=== PATIENT | female | born 1940 | race Caucasian/White ===

== ENCOUNTER 2016-07-25 06:37 | Emergency (ER) | payer OTHER ==
[~2016-07-25] VITALS: Ht 165.1 cm; Wt 95.3 kg
[~2016-07-25 06:37] MED LIST: ALPRAZOLAM0.25 M1 PO; ALPRAZOLAM0.5 MG PO; APAP/CODEINE 301 TAB PO; BACTRIM DS 8001 TAB PO; BUFFERIN LOW DO81 MG PO; CALCIUM + D 6001 TAB PO; CALCIUM600 M2 PO; CLEOCIN HCL300 MG PO; COLACE100 MG PO; COUGH & COLD 41 TAB PO; COUMADIN 5 MG TA5 MG PO; COUMADIN5 M2 PO; DICLOFENAC SODI75 M3 PO; DOCUSATE SODIU100 M3 PO; IRON SUPPLEMEN325 MG PO; KEFLEX500 MG PO; LEVOTHYROXINE0.1 M1 PO; LEVOTHYROXINE0.1 MG PO; LEVOTHYROXINE100 MC1 PO; LISINOPRIL AND1 TA1 PO; LOTRIMIN CR1 %/30 GM TOP; MIRALAX119 GM PO; MULTI-DAY VITA1 EACH PO; NYSTATIN60 GM TOP; PERCOCET 5-3251 EACH PO; SENNA PLUS TAB1 EACH PO; SIMVASTATIN5 M2 PO; SIMVASTATIN5 MG PO; TAMIFLU30 MG PO; TRAMADOL50 MG PO; TYLENOL500 MG PO; VERAPAMIL ER P300 MG PO; VERAPAMIL HYDR300 MG PO; VITAMIN B11000 MCG/M PO; VITAMIN B121000 MC2 PO; VITAMIN D250000 UNIT PO
--- NOTE | 2016-07-25 06:59 | ED GI/GU/ABDOMINAL COMPLAINT ---
See Addendum History of Present Illness General Chief Complaint: Nausea, Vomiting, Diarrhea Stated Complaint: BIBA +NVD Source: patient Exam Limitations: no limitations Vital Signs & Intake/Output Vital Signs & Intake/Output Vital Signs Date Time Temp Pulse Resp B/P B/P Pulse O2 O2 Flow FiO2 Mean Ox Delivery Rate 07/25 0921 96.9 73 15 166/78 96 Room Air Room Air 07/25 0649 96.5 76 20 168/79 95 Room Air Allergies Coded Allergies: Penicillins (Mild, RASH 05/15/15) poison felicitas extract (UNKNOWN 09/01/15) Reconcile Medications Alprazolam 0.25 MG TABLET 1-2 TAB PO PRN ANXIETY (Reported) Calcium Carbonate (Calcium) 600 MG TABLET 1 TAB PO BID SUPPLEMENT (Reported) Cyanocobalamin (Vitamin B12) 1,000 MCG TAB 1 TAB PO DAILY SUPPLEMENT ( Reported) Docusate Sodium 100 MG CAPSULE 1 TAB PO BID CONSTIPATION Ergocalciferol (Vitamin D2) (Vitamin D2) 50,000 UNIT CAPSULE 1 CAP PO Q2W SUPPLEMENT (Reported) Ferrous Sulfate (Iron Supplement) 325 MG TABLET 1 TAB PO DAILY SUPPLEMENT ( Reported) Levothyroxine Sodium 100 MCG TABLET 1 TAB PO DAILY SUPPLEMENT (Reported) LISINOPRIL/HYDROCHLOROTHIAZIDE (Lisinopril-Hctz 20-12.5 MG Tab) 1 TAB TAB 1 TAB PO DAILY BP (Reported) Multivitamin (Multi-Day Vitamins) 1 EACH TABLET 1 TAB PO DAILY SUPPLEMENT ( Reported) Nystatin 60 GM POWDER 1 MIRIAM TOP TID PRN YEAST apply to affected area(s) Oxycodone HCl/Acetaminophen (Percocet 5-325 MG Tablet) 1 EACH TABLET 1-2 TAB PO Q4P PRN PAIN SCALE 1-4 Polyethylene Glycol 3350 (Miralax) 119 GM POWDER 1 PAC PO DAILY NEEDED PRN NO BM IN TWO DAYS Sennosides/Docusate Sodium (Senna Plus Tablet) 1 EACH TABLET 2 TAB PO QPMP PRN NO BM IN TWO DAYS Simvastatin (Zocor) 5 MG TAB 1 TAB PO DAILY CHOLESTEROL (Reported) Verapamil HCl (Verapamil ER Pm) 300 MG CAP24H.PCT 1 CAP PO BID BP (Reported) Warfarin Sodium (Coumadin) 5 MG TABLET 1 TAB PO DAILY BLOOD THINNER TITRATE DOSE TO MAINTAIN INR 2-3 FOR DVT PROPHYLAXIS Triage Note: PT BIBA, PER PT SHE WOKE UP AT 0500, STARTED FEELING LIKE THE ROOM WAS SPINNING, BECAME NAUSEOUS AND WAS DRY HEAVING. PT DENIES ANY ABD PAIN OR DIARRHEA AT THIS TIME. PT DENIES ANY CHEST PAIN OR SOB AT THIS TIME. AT BEDSIDE FOR EVALUATION. Triage Nurses Notes Reviewed? yes ? n Is pt currently ? No Onset: Gradual Duration: hour(s): Timing: recent history Location: nausea, no abdominal pain Radiation: no radiation Activities at Onset: none Prior Abdominal Problems: similar symptoms Modifying Factors: Worsens With: movement. Associated Symptoms: vertigo HPI: 76-year-old woman with a history of vertigo intermittently presents with an episode where she feels that the world is spinning around her, she feels nauseous. She has no diarrhea, chest pain, abdominal pain. Her dizziness began at 5 AM, is worse with movement of her head. She has no focal weakness or dysarthria. She also has significant nausea without vomiting (CICI LENNON,ISSAC Humphries) Past History Travel History Traveled to [place] past 21 day No Medical History Any Pertinent Medical History? 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 No (ISSAC LOO MD) Review of Systems Review of Systems Constitutional: Reports: no symptoms. EENTM: Reports: no symptoms. Respiratory: Reports: no symptoms. Cardiovascular: Reports: no symptoms. GI: Reports: no symptoms. Genitourinary: Reports: no symptoms. Musculoskeletal: Reports: no symptoms. Skin: Reports: no symptoms. Neurological/Psychological: Reports: no symptoms. Hematologic/Endocrine: Reports: no symptoms. Immunologic/Allergic: Reports: no symptoms. All Other Systems: Reviewed and Negative (ISSAC LOO MD) Physical Exam Physical Exam General Appearance: well developed/nourished, mild distress Head: atraumatic, normal appearance Eyes: Bilateral: normal appearance. Ears, Nose, Throat, Mouth: hearing grossly normal Neck: normal inspection, supple, full range of motion, normal alignment Respiratory: normal breath sounds, chest non-tender, no respiratory distress, quiet respiration Gastrointestinal: normal bowel sounds, soft, non-tender, no organomegaly Back: normal inspection, normal range of motion Extremities: normal range of motion Neurologic/Psych: no motor/sensory deficits, awake, alert Skin: intact, normal color, warm/dry Core Measures ACS in differential dx? No Severe Sepsis Present: No Septic Shock Present: No (CICI LENNON,ISSAC Humphries) Progress Differential Diagnosis: UTI/pyelo, vertigo vs dehydration vs other. Plan of Care: Orders Procedure Date/time Status CT HEAD WO IV CONTRAST 07/[address] ABD & PELVIS ANGIOGRAM 07/[address] HEAD WO IV CONTRAST 07/[address] ABD & PELVIS W/O IV CONTRAS 07/25 1023 Active TROPONIN LEVEL 07/25 0659 Complete LIPASE 07/25 0659 Complete HEPATIC FUNCTION PANEL 07/25 0659 Complete CBC WITHOUT DIFFERENTIAL 07/25 0659 Complete BASIC METABOLIC PANEL 07/25 0659 Complete AMYLASE 07/25 0659 Complete EKG 07/25 0659 Active Laboratory Tests 07/25/16 0704: Anion Gap 9, Estimated GFR > 60, BUN/Creatinine Ratio 31.7 H, Glucose 103 H, Calcium 8.8, Total Bilirubin 1.4 H, Direct Bilirubin 0.2, AST 25, ALT 37, Alkaline Phosphatase 66, Troponin I < 0.01, Total Protein 6.3, Albumin 3.8, Amylase 104, Lipase 467 H, CBC w Diff NO MAN DIFF REQ, RBC 4.87, MCV 64.6 L, MCH 20.6 L, RDW 15.4 H, MPV 9.3, Gran % 68.1, Lymphocytes % 17.6 L, Monocytes % 8.2, Eosinophils % 5.4 H, Basophils % 0.7, Absolute Granulocytes 4.4, Absolute Lymphocytes 1.1 L, Absolute Monocytes 0.5, Absolute Eosinophils 0.3, Absolute Basophils 0, PUBS MCHC 32.0 L Initial ED EKG: pending Hand-Off Endorsed To: JESSICA ALTAMIRANO DO Endorsed Time: 0700 Pending: labs (CICI LENNON,ISSAC Humphries) Departure Departure Disposition: HOME OR SELF CARE Condition: Stable Clinical Impression Primary Impression: Vertigo Referrals: GENESIS LENNON,MARY Carr (PCP/Family) Departure Forms: Customer Survey General Discharge Information (CICI LENNON,ISSAC Humphries) Departure Comments 07/25/16 10:30 AM The patient was signed out to me by Dr. Loo. She had severe vertigo earlier today. It is improved with meclizine she did have an elevated lipase. She is pending imaging studies assuming these are normal discharge. (JESSICA ALTAMIRANO DO)
[2016-07-25 07:22] LABS: ABSOLUTE BASOPHIL COUNT 0 /CUMM (0.0-0.2); ABSOLUTE EOSINOPHIL COUNT 0.3 /CUMM (0.0-0.7); ABSOLUTE GRANULOCYTE CT 4.4 /CUMM (1.4-6.5); ABSOLUTE LYMPH COUNT 1.1 /CUMM (1.2-3.4); ABSOLUTE MONOCYTE COUNT 0.5 /CUMM (0.10-0.60); BASOPHIL % 0.7 % (0.0-2.0); EOSINOPHIL % 5.4 % (0-5); GRANULOCYTE % 68.1 % (42.2-75.2); HEMATOCRIT 31.5 % (37-47); MEAN CORPUSCULAR HGB 20.6 PG (27.0-31.0); MEAN PLATELET VOLUME 9.3 FL (7.4-10.4); PLATELET COUNT 211 /CUMM (130-400); RBC DISTRIBUTION WIDTH 15.4 % (11.5-14.5); RED BLOOD CELL CT 4.87 /CUMM (4.20-5.40); WHITE BLOOD CELL COUNT 6.5 /CUMM (4.8-10.8)
[2016-07-25 08:00] LABS: MEAN CORPUSCULAR VOLUME 64.6 FL (81.0-99.0)
--- NOTE | 2016-07-25 11:20 | CT SCAN REPORT ---
EXAMINATION: CT HEAD WITHOUT CONTRAST CLINICAL INFORMATION: Vertigo. COMPARISON: Temporal bone CT 03/15/2012. TECHNIQUE: Contiguous axial imaging was performed from the skull base to vertex without intravenous administration of contrast. DLP: 610 mGy-cm FINDINGS: There is no evidence of acute intracranial hemorrhage or territorial infarction. No abnormal mass effect or midline shift is seen. Lawson to white matter differentiation is well preserved. No extra-axial fluid collections are identified. The ventricles are normal in size. There is no abnormal attenuation within the brain parenchyma. The osseous structures and soft tissues are normal. The mastoid air cells and visualized portions of the paranasal sinuses are well aerated. IMPRESSION: No acute intracranial pathology.
--- NOTE | 2016-07-25 11:52 | CT SCAN REPORT ---
EXAMINATION: CT ABDOMEN AND PELVIS WITHOUT CONTRAST CLINICAL INFORMATION: Elevated lipase with dry heaves. COMPARISON: Pelvis CT 01/17/2012. Abdominal portions of a Chest CT 11/10/2012 TECHNIQUE: Multidetector volumetric imaging was performed from the superior aspect of the liver through the pubic symphysis. Sagittal and coronal reformatted images were obtained on the technologist's workstation. DLP: 915 mGy-cm FINDINGS: LUNG BASES: There is moderate atherosclerotic calcification involving visualized portion of the coronary arteries. Increased reticular markings inferiorly in the lateral aspect of the right middle lobe are stable appearing likely related to some scarring. LIVER AND SPLEEN: Unremarkable. PANCREAS GALLBLADDER AND BILIARY TREE: Unremarkable. KIDNEYS, URETERS, AND ADRENALS: Unremarkable. URINARY BLADDER: Partially obscured posteriorly, visualized portion is moderately fluid-filled and unremarkable. GI TRACT: Stomach and small bowel appear unremarkable. The cecum is on a long mesentery situated just to the right of the umbilicus. The appendix is normal appearing. There is extensive left-sided colonic diverticulosis most numerous in the sigmoid colon without evidence of acute diverticulitis on this examination. PERITONEAL CAVITY: Unremarkable. RETROPERITONEUM: Unremarkable PELVIC ORGANS: Unremarkable OSSEOUS STRUCTURES: Patient is status post right total hip arthroplasty, portions visualized demonstrate no evidence of complication or failure. There are moderate degenerative changes in the left hip and in the lumbar spine There is bilateral L5 spondylolysis with grade 1 anterolisthesis of L5 on S1. There are no aggressive appearing osseous lesions. ANTERIOR ABDOMINAL WALL AND SOFT TISSUES: Tiny periumbilical hernia contains only mesenteric fat. IMPRESSION: 1. There is no evidence of an acute intra-abdominal process. 2. Left-sided colonic diverticulosis, no evidence of diverticulitis. 3. Osseous and other findings as noted above.
[2016-07-25 12:39] VITALS: BP 152/90
[2016-08-05] MEDS ORDERED: CYCLOBENZAPRINE5 M2 PO (11:40)
[2016-08-06] MEDS ORDERED: LISINOPRIL-HCT1 EACH PO (20:42)
[2016-08-06] MEDS ORDERED: LEVOTHYROXINE112 MCG PO (20:43)
[2016-08-06] MEDS ORDERED: ASPIRIN EC81 M1 PO (20:44)
[2016-08-06] MEDS ORDERED: ACETAMINOPHEN-1 EAC3 PO (20:44)
[2016-08-06] MEDS ORDERED: MULTI-DAY VITA1 EACH PO (20:44)
[2016-08-06] MEDS ORDERED: VITAMIN B-121000 MC3 PO (20:45)
[2016-08-06] MEDS ORDERED: CYCLOBENZAPRINE5 M2 PO (20:46)
== END 2016-07-25 12:55 ==
LOC: ERH 06:37
PROVIDERS: Pediatrics
DX: R42 Dizziness and giddiness (principal); I10 Essential (primary) hypertension; E03.9 Hypothyroidism, unspecified; Z72.0 Tobacco use
CPT/HCPCS: 74176; 93005; 93010; 96374; J2405

== ENCOUNTER 2016-08-08 08:49 | Inpatient (IN) | payer OTHER ==
[~2016-08-08] VITALS: Ht 165.1 cm; Wt 95.3 kg
[~2016-08-08 08:49] MED LIST changes: +ACETAMINOPHEN-1 EAC3 PO; +ASPIRIN EC81 M1 PO; +CYCLOBENZAPRINE5 M2 PO; +LEVOTHYROXINE112 MCG PO; +LISINOPRIL-HCT1 EACH PO; +VITAMIN B-121000 MC3 PO
--- NOTE | 2016-08-08 08:56 | NUR ---
PT TO ED C/O SHAKING, CHILLS AND NAUSEA. SEEN IN ED FOR SAME YESTERDAY. PT STATES SHE WAS FEELING BETTER AND DISCHARGED HOME. WOKE UP FEELING WORSE THIS AM. C/O DRY HEAVING, FEELING COLD. TEMP 100.8.
--- NOTE | 2016-08-08 09:05 | NUR ---
PT TO ER ROOM 8 MD TO BEDSIDE FOR EVAL
--- NOTE | 2016-08-08 09:10 | ED GENERAL ADULT ---
History of Present Illness General Chief Complaint: General Adult Stated Complaint: TREMBLING (SEEN YESTERDAY FOR SAME) Source: patient, old records, friend Exam Limitations: no limitations Vital Signs & Intake/Output Vital Signs & Intake/Output Vital Signs Date Time Temp Pulse Resp B/P B/P Pulse O2 O2 Flow FiO2 Mean Ox Delivery Rate 08/08 1055 98.9 93 12 138/59 95 Room Air 08/08 0855 100.8 113 20 159/80 96 Room Air Allergies Coded Allergies: Penicillins (Mild, RASH 05/15/15) poison felicitas extract (UNKNOWN 09/01/15) Reconcile Medications Acetaminophen With Codeine (Acetaminophen-Cod #3 Tablet) 300 MG-30 MG TABLET 1 TAB PO PRN PAIN/SLEEP (Reported) Alprazolam 0.25 MG TABLET 1-2 TAB PO PRN ANXIETY (Reported) Aspirin (Ecotrin*) 81 MG TABLET.DR 1 TAB PO DAILY HEART/BLOOD (Reported) Cyanocobalamin (Vitamin B-12) (Unknown Strength) TABLET (Unknown Dose) PO DAILY SUPPLEMENT (Reported) Cyclobenzaprine HCl 5 MG TABLET 1 TAB PO TIDPRN MUSCLE SPASMS (Reported) Ergocalciferol (Vitamin D2) (Vitamin D2) 50,000 UNIT CAPSULE 1 CAP PO Q2W SUPPLEMENT (Reported) Levothyroxine Sodium 112 MCG TABLET 1 TAB PO DAILY THYROID (Reported) Lisinopril/Hydrochlorothiazide (Lisinopril-Hctz 20-12.5 MG Tab) 20 MG-12.5 MG TABLET 2 TAB PO DAILY BP (Reported) Multivitamin (Multi-Day Vitamins) 1 EACH TABLET 1 TAB PO DAILY SUPPLEMENT ( Reported) Simvastatin (Simvastatin*) 5 MG TABLET 1 TAB PO DAILY CHOLESTEROL (Reported) Verapamil HCl (Verapamil ER Pm) 300 MG CAP24H.PCT 1 CAP PO DAILY BP (Reported ) Triage Note: PT TO ED C/O SHAKING, CHILLS AND NAUSEA. SEEN IN ED FOR SAME YESTERDAY. PT STATES SHE WAS FEELING BETTER AND DISCHARGED HOME. WOKE UP FEELING WORSE THIS AM. C/O DRY HEAVING, FEELING COLD. TEMP 100.8. Triage Nurses Notes Reviewed? yes HPI: Patient presents to the ER with compalints of shaking chills. She states that her symtoms started 2 days ago. She was seen in the ER on Friday for leg pain that she has had for 3 months. She was prescribed flexeril and discharged home. The next day she felt very anxious and had tremors and came back to the ER. She was told to stop the flexeril and discharged home. Yesterday she was feeling better but last night she started with tremours again. Patient also has episodes of chills followed by feeling like she is burning up. She feels nauseus but there has been no vomiting. She denies diarrhea. She denies abdominla pain. She is anorexic. Patient was also seen 2 weeks ago for vertigo and her work up, including CT scans of head, abdomine and pelvis, were negative. She denies dysruia but has noticed increased urinary frquency snce yesterday. There is no coughing. ED Sepsis Exam Date of Focused Sepsis Exam: 08/08/16 Time of Focused Sepsis Exam: 1052 Sepsis Cardiac Exam: Tachycardia Sepsis Resp Exam: CTA Sepsis Cap Refill Exam: <2 Sec Sepsis Peripheral Pulse Exam: Normal Sepsis Peripheral Pulse Location: Radial Sepsis Skin Color Exam: Normal for Ethnicity Skin Temp/Moisture Exam: Warm/Dry Past History Travel History Traveled to [place] past 21 day No Medical History Any Pertinent Medical History? 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 No Review of Systems Review of Systems Constitutional: Reports: see HPI, chills, weakness. EENTM: Reports: no symptoms. Respiratory: Reports: no symptoms. Cardiovascular: Reports: no symptoms. GI: Reports: see HPI, nausea. Genitourinary: Reports: no symptoms. Musculoskeletal: Reports: no symptoms. Skin: Reports: no symptoms. Neurological/Psychological: Reports: see HPI, tremors. Hematologic/Endocrine: Reports: no symptoms. Immunologic/Allergic: Reports: no symptoms. All Other Systems: Reviewed and Negative Physical Exam Physical Exam General Appearance: well developed/nourished, alert, awake, anxious, mild distress Head: atraumatic, normal appearance Eyes: Bilateral: PERRL, EOMI, other (no nystagmus). Ears, Nose, Throat: normal pharynx, normal ENT inspection, hearing grossly normal Neck: normal inspection, supple, full range of motion Respiratory: normal breath sounds, chest non-tender, no respiratory distress, lungs clear Cardiovascular: regular rate/rhythm, normal peripheral pulses Gastrointestinal: normal bowel sounds, soft, non-tender, no organomegaly Back: normal inspection, normal range of motion Extremities: normal inspection, normal capillary refill, normal range of motion, no edema Neurologic/Psych: no motor/sensory deficits, awake, alert, oriented x 3, normal gait, normal mood/affect Skin: intact, normal color, warm/dry Lymphatic: no anterior cervical angelica Core Measures ACS in differential dx? No CVA/TIA Diagnosis: No Severe Sepsis Present: Yes Septic Shock Present: No Progress Differential Diagnoses I considered the following diagnoses in my evaluation of the patient: [SEPSIS, UTI, PNEUMONIA, ELECTROLYTE ABNORMALITY] Plan of Care: Orders Procedure Date/time Status Regular Diet 08/08 D Active LACTIC ACID 08/08 1210 Active Patient Data 08/08 1116 Active Saline Lock 08/08 1106 Active Misc Message 08/08 1106 Active ED Holding Orders 08/08 1106 Active Vital Signs 08/08 1106 Active Activity/Ambulation 08/08 1106 Active Code Status 08/08 1106 Active Admit to inpatient 08/08 1103 Active CULTURE,URINE 08/08 0910 Active BLOOD CULTURE 08/08 0910 Active URINALYSIS 08/08 0910 Complete TROPONIN LEVEL 08/08 0910 Complete LACTIC ACID 08/08 0910 Complete COMPREHENSIVE METABOLIC PANEL 08/08 0910 Complete CBC WITHOUT DIFFERENTIAL 08/08 0910 Complete EKG 08/08 0910 Active Current Medications Sig/Hugo Start time Last Medication Dose Stop Time Status Admin Sodium Chloride 1,000 ML BOLUS ONE 08/08 1100 AC (Normal Saline 0.9%) 08/08 1159 Sodium Chloride 1,000 ML BOLUS ONE 08/08 1100 AC (Normal Saline 0.9%) 08/08 1159 Laboratory Tests 08/08/16 1037: Urine Color YEL, Urine Clarity HAZY H, Urine pH 6.0, Ur Specific [place] 1.020, Urine Protein 30 H, Urine Ketones 15 H, Urine Nitrite POS H, Urine Bilirubin NEG, Urine Urobilinogen 0.2, Ur Leukocyte Esterase SMALL H, Ur Microscopic SEDIMENT EXAMINED, Urine RBC 1-3, Urine WBC > 75 H, Ur Epithelial Cells FEW, Urine Bacteria MANY H, Granular Casts 1-3 H, Urine Hemoglobin SMALL H, Urine Glucose NEG 08/08/16 0952: Anion Gap 7, Estimated GFR > 60, BUN/Creatinine Ratio 20.0, Glucose 145 H, Lactic Acid 1.2, Calcium 8.3 L, Total Bilirubin 1.6 H, AST 26, ALT 45, Alkaline Phosphatase 108, Troponin I 0.05, Total Protein 5.9 L, Albumin 3.4 L, Globulin 2.5, Albumin/Globulin Ratio 1.4, CBC w Diff MAN DIFF ORDERED, RBC 4.67, MCV 62.3 L, MCH 19.7 L, RDW 14.9 H, MPV 8.7, Gran % 89.4 H, Lymphocytes % 3.2 L, Monocytes % 7.2, Eosinophils % 0.2, Basophils % 0 L, Absolute Granulocytes 14.4 H, Segmented Neutrophils 84 H, Band Neutrophils 9 H, Absolute Lymphocytes 0.5 L, Lymphocytes 2 L, Monocytes 5, Absolute Monocytes 1.2 H, Absolute Eosinophils 0, Absolute Basophils 0, Platelet Estimate ADEQUATE , Hypochromic-Microcytic 2+, Poikilocytosis 2+, Anisocytosis 2+, Microcytic Cells 2+, Ovalocytes 1+, Elliptocytes 1+, PUBS MCHC 31.7 L Microbiology 08/08 1037 URINE ROUT: Urine Culture - RECD 08/08 0852 BLOOD: Blood Culture - RECD 08/08 0938 BLOOD: Blood Culture - RECD Diagnostic Imaging: Viewed by Me: Radiology Read. Discussed w/RAD: Radiology Read. CXR Impression: PATIENT: KILO PHELAN PRESENT AGE: 76 PATIENT ACCOUNT NO: [id number] : 38 LOCATION: [facility] ORDERING PHYSICIAN: RADHA JOHNSON MD SERVICE DATE: 08/08/16 EXAM TYPE: RAD - XRY- PORTABLE CHEST XRAY EXAMINATION: XR PORTABLE CHEST CLINICAL INFORMATION: Shaking chills. COMPARISON: CT chest 11/10/2012 TECHNIQUE: Portable frontal view of the chest was obtained. FINDINGS: The cardiomediastinal silhouette is stable. Patchy airspace opacity in the right lung base. No pneumothorax or definite pleural effusions. IMPRESSION: Patchy airspace opacity in the right lung base may reflect atelectasis/scarring as seen on prior imaging, however, a superimposed developing infiltrate cannot be excluded. DICTATED BY: CHANTEL LOPEZ MD DATE /TIME DICTATED:08/08/16944 POWER ELECTRONICS ENGINEER:URSULA DATE/TIME TRANSCRIBED: 08/08/16944 CONFIDENTIAL, DO NOT COPY WITHOUT APPROPRIATE AUTHORIZATION. < Electronically signed in Other Vendor System> SIGNED BY: CHANTEL LOPEZ MD 08/08/1651 Initial ED EKG: S TACH AT 102, NSSTT CHANGES, NO CHANGE FROM PRIOR. Prior EKG: unchanged Departure Departure Disposition: STILL A PATIENT Condition: Guarded Clinical Impression Primary Impression: Sepsis due to urinary tract infection Referrals: GENESIS LENNON,MARY Carr (PCP/Family) Departure Forms: Customer Survey General Discharge Information Admission Note Spoke With: KAILEE MERRILL M.D Documentation of Exam: Documentation of any treatments & extenuating circumstances including Concerns Regarding Discharge (functional status, medication knowledge or non-compliance, living conditions, etc.) that warrant an admission rather than observation: [IV ABX, IV FLUIDS, FOLLOW UP CULTURES, ANTICIPATE LONGER THAN 2 HOSPITAL DAYS FOR TREATMENT] Critical Care Note Critical Care Note Critical Care Time: mins: (30 MIN)
--- NOTE | 2016-08-08 09:13 | NUR ---
EVALUATED BY SR. JOHNSON.
--- NOTE | 2016-08-08 09:30 | NUR ---
XRAY TO BEDSIDE
--- NOTE | 2016-08-08 09:45 | NUR ---
IV EST. PT MEDICATED PER EMAR AT THIS TIME
--- NOTE | 2016-08-08 09:51 | RADIOLOGY REPORT ---
EXAMINATION: XR PORTABLE CHEST CLINICAL INFORMATION: Shaking chills. COMPARISON: CT chest 11/10/2012 TECHNIQUE: Portable frontal view of the chest was obtained. FINDINGS: The cardiomediastinal silhouette is stable. Patchy airspace opacity in the right lung base. No pneumothorax or definite pleural effusions. IMPRESSION: Patchy airspace opacity in the right lung base may reflect atelectasis/scarring as seen on prior imaging, however, a superimposed developing infiltrate cannot be excluded.
--- NOTE | 2016-08-08 09:57 | NUR ---
BLOOD DRAWN AND SENT. LAV,SST X 2,BLUE,LIMON
--- NOTE | 2016-08-08 09:58 | NUR ---
SECOND SET OF CULTURES DRAWN AND SENT
[2016-08-08 10:04] LABS: ABSOLUTE BASOPHIL COUNT 0 /CUMM (0.0-0.2); ABSOLUTE EOSINOPHIL COUNT 0 /CUMM (0.0-0.7); ABSOLUTE GRANULOCYTE CT 14.4 /CUMM (1.4-6.5); ABSOLUTE LYMPH COUNT 0.5 /CUMM (1.2-3.4); ABSOLUTE MONOCYTE COUNT 1.2 /CUMM (0.10-0.60); BASOPHIL % 0 % (0.0-2.0); EOSINOPHIL % 0.2 % (0-5); GRANULOCYTE % 89.4 % (42.2-75.2); HEMATOCRIT 29.1 % (37-47); MEAN CORPUSCULAR HGB 19.7 PG (27.0-31.0); MEAN CORPUSCULAR HGB CONC 31.7 G/DL (33.0-37.0); MEAN CORPUSCULAR VOLUME 62.3 FL (81.0-99.0); MEAN PLATELET VOLUME 8.7 FL (7.4-10.4); PLATELET COUNT 305 /CUMM (130-400); RBC DISTRIBUTION WIDTH 14.9 % (11.5-14.5); RED BLOOD CELL CT 4.67 /CUMM (4.20-5.40); WHITE BLOOD CELL COUNT 16.1 /CUMM (4.8-10.8)
--- NOTE | 2016-08-08 11:21 | History & Physical ---
UL MARI LENNON,[facility] 08/08/16 1121: General Information and HPI MD Statement: I have seen and personally examined KILO PHELAN and documented this H&P. The patient is a 76 year old F who presented with a patient stated chief complaint of [shaking and chills]. Source of Information: patient Exam Limitations: no limitations History of Present Illness: 76 years old woman with past medical history significant for hypothyroidism status post thyroidectomy, hypertension, hyperlipidemia, osteoarthritis, history of anxiety, depression and skin cancer status post local excision of neoplastic skin lesion, status post right total hip arthroplasty for osteoarthritis of right hip on 10/12/2014, Left total knee arthroplasty 09/13/15 came to emergency department with chief complaint of shaking and chills. Accordingly the patient her symptoms started 2 days ago. She was seen in emergency department on Friday for her leg pain that she has been having for the last 3 months. She was given Flexeril and discharged home. She experienced tremors after starting the medication and came back to ER the next day where she was told to stop the Flexeril. She was told it could be a possible reaction or side effect to Flexeril. Although patient did have leukocytosis of 11.8 with tremors. Later at the end of the day she started experiencing low grade temp which she did not check. She felt warm and also had increased urination. She denied any dysuria, discharge or burning with urination. Patient also had some dry heaving but did not have any episodes of vomiting. Review of system was negative for any cough, headache, visual changes, chest pain, shortness of breath, rash, recent travel, sick contacts and diarrhea. Allergies/Medications Allergies: Coded Allergies: Penicillins (Mild, RASH 05/15/15) poison felicitas extract (UNKNOWN 09/01/15) Home Med list Acetaminophen With Codeine (Acetaminophen-Cod #3 Tablet) 300 MG-30 MG TABLET 1 TAB PO PRN PAIN/SLEEP (Reported) Alprazolam 0.25 MG TABLET 1-2 TAB PO PRN ANXIETY (Reported) Aspirin (Ecotrin*) 81 MG TABLET.DR 1 TAB PO DAILY HEART/BLOOD (Reported) Cyanocobalamin (Vitamin B-12) 1,000 MCG TABLET 1,000 MCG PO DAILY SUPPLEMENT (Reported) Ergocalciferol (Vitamin D2) (Vitamin D2) 50,000 UNIT CAPSULE 1 CAP PO Q2W SUPPLEMENT (Reported) Ferrous Sulfate 325 MG (65 MG IRON) TABLET 1 TAB PO DAILY IRON SUPPLEMENT ( Reported) Levothyroxine Sodium 112 MCG TABLET 1 TAB PO DAILY THYROID (Reported) Lisinopril/Hydrochlorothiazide (Lisinopril-Hctz 20-12.5 MG Tab) 20 MG-12.5 MG TABLET 2 TAB PO DAILY BP (Reported) Multivitamin (Multi-Day Vitamins) 1 EACH TABLET 1 TAB PO DAILY SUPPLEMENT ( Reported) Simvastatin (Simvastatin*) 5 MG TABLET 1 TAB PO DAILY CHOLESTEROL (Reported) Verapamil HCl (Verapamil ER Pm) 300 MG CAP24H.PCT 1 CAP PO DAILY BP (Reported ) Compliance With Home Meds: GOOD Past History Travel History Traveled to [place] past 21 day No Medical History Neurological: NONE EENT: allergies Cardiovascular: hypertension, hyperlipidemia Respiratory: NONE Gastrointestinal: NONE Hepatic: NONE Renal: NONE Musculoskeletal: osteoarthritis Psychiatric: anxiety Endocrine: hypothyroidism Blood Disorders: NONE Cancer(s): SKIN CA 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 Ambulation: independent IADLs Independent: housework, telephone. Review of Systems Review of Systems Constitutional: Reports: chills, fever. EENTM: Denies: visual changes. Cardiovascular: Denies: chest pain, palpitations. Respiratory: Denies: cough, short of breath. GI: Denies: abdominal pain, nausea, vomiting. Genitourinary: Reports: frequency, urgency. Denies: discharge, dysuria, nocturia, pain. Musculoskeletal: Denies: back pain. All Other Systems: Reviewed and Negative Exam & Diagnostic Data Last 24 Hrs of Vital Signs/I&O Vital Signs Date Time Temp Pulse Resp B/P B/P Pulse O2 O2 Flow FiO2 Mean Ox Delivery Rate 08/08 1055 98.9 93 12 138/59 95 Room Air 08/08 0855 100.8 113 20 159/80 96 Room Air Intake & Output 08/08 1600 08/08 0800 08/08 0000 Intake Total 1100 Output Total Balance 1100 Intake, IV 1100 Patient 210 lb Weight Weight Estimated Measurement Method Physical Exam General Appearance Alert, Oriented X3, Cooperative, No Acute Distress Skin No Rashes HEENT Atraumatic Neck Supple Cardiovascular Regular Rate, Normal S1, Normal S2 Lungs Clear to Auscultation, Normal Air Movement Abdomen Normal Bowel Sounds, Soft, No Tenderness, Negative Renal Pucnh Neurological Normal Speech, Normal Tone, Sensation Intact Extremities No Edema Vascular Normal Pulses Last 24 Hrs of Labs/Christopher: Laboratory Tests 08/08/16 1037: Urine Color YEL, Urine Clarity HAZY H, Urine pH 6.0, Ur Specific [place] 1.020, Urine Protein 30 H, Urine Ketones 15 H, Urine Nitrite POS H, Urine Bilirubin NEG, Urine Urobilinogen 0.2, Ur Leukocyte Esterase SMALL H, Ur Microscopic SEDIMENT EXAMINED, Urine RBC 1-3, Urine WBC > 75 H, Ur Epithelial Cells FEW, Urine Bacteria MANY H, Granular Casts 1-3 H, Urine Hemoglobin SMALL H, Urine Glucose NEG 08/08/16 0952: Anion Gap 7, Estimated GFR > 60, BUN/Creatinine Ratio 20.0, Glucose 145 H, Lactic Acid 1.2, Calcium 8.3 L, Total Bilirubin 1.6 H, AST 26, ALT 45, Alkaline Phosphatase 108, Troponin I 0.05, Total Protein 5.9 L, Albumin 3.4 L, Globulin 2.5, Albumin/Globulin Ratio 1.4, CBC w Diff MAN DIFF ORDERED, RBC 4.67, MCV 62.3 L, MCH 19.7 L, RDW 14.9 H, MPV 8.7, Gran % 89.4 H, Lymphocytes % 3.2 L, Monocytes % 7.2, Eosinophils % 0.2, Basophils % 0 L, Absolute Granulocytes 14.4 H, Segmented Neutrophils 84 H, Band Neutrophils 9 H, Absolute Lymphocytes 0.5 L, Lymphocytes 2 L, Monocytes 5, Absolute Monocytes 1.2 H, Absolute Eosinophils 0, Absolute Basophils 0, Platelet Estimate ADEQUATE , Hypochromic-Microcytic 2+, Poikilocytosis 2+, Anisocytosis 2+, Microcytic Cells 2+, Ovalocytes 1+, Elliptocytes 1+, PUBS MCHC 31.7 L Microbiology 08/08 1127 LOWER RESP: Respiratory Culture - ORD 08/08 1127 LOWER RESP: Gram Stain - ORD 08/08 1037 URINE ROUT: Urine Culture - RECD 08/09 951 BLOOD: Blood Culture - RECD 08/08 937 BLOOD: Blood Culture - RECD Diagnostic Data EKG Results SR, Borderline Left axis deviation. CXR Results Patchy airspace opacity in the right lung base may reflect atelectasis/scarring as seen on prior imaging, however, a superimposed developing infiltrate cannot be excluded. Assessment/Plan Assessment: 76 years old woman with past medical history significant for hypothyroidism status post thyroidectomy, hypertension, hyperlipidemia, osteoarthritis, history of anxiety, depression and skin cancer status post local excision of neoplastic skin lesion, status post right total hip arthroplasty for osteoarthritis of right hip on 10/12/2014, Left total knee arthroplasty 09/13/15 came to emergency department with chief complaint of shaking and chills. Patient was in emergency department 2 weeks ago for complaints of vertigo and had workup including CAT scan of head abdomen and pelvis that were negative. Patient was admitted on general medicine floor for the management of following problems Sepsis secondary to urinary tract infection Patient meets the criteria of sepsis with a MAXIMUM TEMPERATURE of 100.8, tachycardia, white count of 16.1 and the source most likely a urinary tract infection. - Admit Patient to General Medicine Floor - Vitals Qshift - Patient received 1 dose of IV ceftriaxone in ED. - Continue with IV ceftriaxone - Send Urine Culture - Check blood cultures to rule out bacteremia - Repeat CBC in AM follow leukocytosis - Tyelenol PRN if patient develops fever - Incase of worsening Fever consider CT Abd/Pelvis - Fall Precautions - IV fluids normal saline at the rate of 125 mL per hour - Avoid nephrotoxins - Repeat BEP in a.m. 2) Hypothyroidism His past medical history significant for hypothyroidism status post thyroidectomy. Continue with home dose of levothyroxine. 3) Hypertension Restart antihypertensive medications tomorrow. Patient tolerated the operative this morning Patient is on verapamil and a combination of lisinopril and HCTZ. 4) Hyperlipidemia Continue with Zocor 5 mg daily. 5) History of anxiety and depression Consider an 0.25MG ativan PRN for anxiety. Patient is on subcutaneous heparin for DVT prophylaxis Patient is on heart healthy diet Patient is full code Patient is on pain management As Ranked By This Provider Problem List: 1. Sepsis due to urinary tract infection Core Measures/Miscellaneous Acute Coronary Syndrome ACS Diagnosis: No Cerebrovascular Accident CVA/TIA Diagnosis: No Congestive Heart Failure CHF Diagnosis: No VTE (View Protocol) VTE Risk Factors: Acute medical illness, Age > 40 No [facility] V[facility] prophylaxis d/t: No contraindications No VTE Pharm Prophylaxis d/t: No contraindications VTE Diagnosis: No VTE Type: NONE VTE Confirmed by (Test): NONE Sepsis (View Protocol) Severe Sepsis Present: No Septic Shock Septic Shock Present: No Miscellaneous Documentation Attending Case Discussed With: SHIRLENE WESTBROOK MD Primary Care Physician: MARY HURTADO MD, I. Patient sees these Specialists PCP Level of Patient Care: General Medicine SHIRLENE WESTBROOK MD 08/08/16 1914: Attending MD Review Statement Attending Statement Attending MD Statement: examined this patient, discuss w/resident/PA/BULK STATION AGENT, agreed w/resident/PA/BULK STATION AGENT, reviewed EMR data (avail) Attending Assessment/Plan: 76F PMH right hip and left knee replacement, with multiple complaints including abdominal bloating that resolved with Simethicone, left leg pain and cramping, given Flexeril by ED 2 days ago with resulting nausea and lightheadedness, returns today with complaints of fever, chills, polyuria in the setting of UTI. Patient meets sepsis criteria but appears well at this time and is showing no evidence of end-organ damage. She feels better after IV hydration and Ceftriaxone given in ED. SHe also reports generalized weakness and unable to manage ADLs at this time, as she lives alone. She also reports an episode of vertigo yesterday lasting 20 minutes that self-resolved. 1. UTI 2. Fever and leukocytosis 3. Vertigo 4. Generalized weakness Plan - Admit to general medicine - Start Ceftriaxone - Urine cultures - PT eval for vertigo and left leg pain - Gentle IV hydration - Continue home medications - DVT PPx
--- NOTE | 2016-08-08 11:32 | NUR ---
DIETARY CALLED FOR MEAL TRAY.
[2016-08-08] MEDS ORDERED: FERROUS SULFAT325 M3 PO (11:55)
--- NOTE | 2016-08-08 12:10 | NUR ---
[facility] CALLED FOR MEDS SECOND LITER NS REMAINS INFUSING PER ORDER AT THIS TIME DR WESTBROOK AT BEDSIDE
--- NOTE | 2016-08-08 12:28 | NUR ---
PT MEDICATED PER EMAR AT THIS TIME PT SITTING UP IN CHAIR EATING LUNCH TRAY AT THIS TIME SECOND LITER NS REMAINS INFUSING PER ORDER
--- NOTE | 2016-08-08 12:54 | NUR ---
pt admitted to room 223-1
--- NOTE | 2016-08-08 13:27 | NUR ---
REPORT GIVENT O FLOOR TRANSPORT BOOKED
[2016-08-08 15:36] VITALS: BP 100/70
[2016-08-08 16:00] VITALS: BP 100/70
--- NOTE | 2016-08-08 16:32 | Patient Discharge Instructions ---
Discharge Instructions General Discharge Information You were seen/treated for: UTI Watch for these problems: If you feel weak, experience chest pain, shortness breath, worsening cough or increased weakness please come back to the emergency department. Other signs to watch out for include: fever, chills, nausea and vomiting. Special Instructions: Please follow-up with your primary care physician within 7 days of discharge. Please inform your primary care physician of this admission to the hospital. Diet Continue normal diet: No Recommended Diet: Heart Healthy Activity Full Activity/No Limits: No Activity Self Limited: Yes (As Tolerated ) Acute Coronary Syndrome Inclusion Criteria At DC or during hospital stay patient has or had the following: ACS DIAGNOSIS No Discharge Core Measures Meds if any: Prescribed or Continued at Discharge Meds if any: NOT Prescribed or Continued at Discharge Congestive Heart Failure Inclusion Criteria At DC or during hospital stay patient has or had the following: CHF DIAGNOSIS No Discharge Core Measures Meds if any: Prescribed or Continued at Discharge Meds if any: NOT Prescribed or Continued at Discharge Cerebrovascular accident Inclusion Criteria At DC or during hospital stay patient has or had the following: CVA/TIA Diagnosis No Discharge Core Measures Meds if any: Prescribed or Continued at Discharge Meds if any: NOT Prescribed or Continued at Discharge Venous thromboembolism Inclusion Criteria VTE Diagnosis No VTE Type NONE VTE Confirmed by (Test) NONE Discharge Core Measures - Per Current guidelines, there needs to be overlap - treatment for the first 5 days of Warfarin therapy. - If discharged on Warfarin prior to 5 days of - overlap therapy, the patient will need to be - assessed for post discharge needs including - *Post discharge parental anticoagulation - *Warfarin and/or parental anticoagulation education - *Follow up date to check INR post discharge At least 5 days overlap therapy as Inpatient No Meds if any: Prescribed or Continued at Discharge Note: Overlap Therapy is Warfarin and Anticoagulant Meds if any: NOT Prescribed or Continued at Discharge
--- NOTE | 2016-08-08 19:17 | Admission Certification ---
Admission Certification Certification Statement - As attending physician, I certify that at the time of - admission, based on clinical presentation, severity of - symptoms, need for further diagnostic testing and - therapeutic interventions, and risk of adverse outcomes - without in-hospital treatment, in my clinical assessment, - this patient requires an acute hospital stay for a minimum - of two nights or longer. I have also considered psychsocial - factors such as support system, advanced age, financial - issues, cognitive issues, and failed out-patient treatments, - past re-admission history, safety of patient, and lack of - compliance as applicable. Specific rationale supporting this admission is: UTI meeting sepsis criteria with weakness and difficulty with ADLs
[2016-08-08 22:09] VITALS: BP 112/64
[2016-08-09 06:09] VITALS: BP 120/72
--- NOTE | 2016-08-09 06:24 | PN- Housestaff ---
YOSEPH LENNON,[facility] 08/09/16 0623: Subjective Follow-up For: UTI Subjective: Ms Dunn was seen and examined this morning. She is resting comfortably on the chair beside her bed. Patient states she feels remarkably better. States that she feels the best she's failed all week. She denies any acute issues overnight. Denies any urinary symptoms, dysuria or frequency. Denies any fever , chills, nausea, vomiting. Ms Dunn is tolerating a by mouth intake will currently enjoying breakfast. Denies any vertigo. Patient was febrile overnight, Up to 101.1. Review of Systems Constitutional: Reports: see HPI. Objective Last 24 Hrs of Vital Signs/I&O Vital Signs Date Time Temp Pulse Resp B/P B/P Pulse O2 O2 Flow FiO2 Mean Ox Delivery Rate 08/09 0609 98.7 63 18 120/72 93 Room Air 08/08 2216 99.0 08/08 2209 99.8 75 18 112/64 94 08/08 2038 101.1 08/08 1600 98.6 81 20 100/70 95 Room Air 08/08 1536 98.6 81 20 100/70 95 Room Air 08/08 1303 98.0 93 12 104/55 95 Room Air 08/08 1055 98.9 93 12 138/59 95 Room Air Intake & Output 08/09 1600 08/09 0800 08/09 0000 Intake Total 615 500 Output Total 700 200 Balance -85 300 Intake, IV 375 300 Intake, Oral 240 200 Number 0 1 Bowel Movements Output, Urine 700 200 Physical Exam General Appearance: Alert, Oriented X3, Cooperative Skin Temp/Moisture Exam: Warm/Dry Sepsis Skin Exam (color): Normal for Ethnicity Lymphatic: Cervical nl Cardiovascular: Regular Rate, Normal S1, Normal S2 Lungs: Clear to Auscultation Abdomen: Normal Bowel Sounds, Soft, No Tenderness Neurological: Normal Gait, Normal Speech, Strength at 5/5 X4 Ext Extremities: No Edema Current Medications: Current Medications Sig/Hugo Start time Last Medication Dose Route Stop Time Status Admin Acetaminophen 650 MG Q6P PRN 08/08 1200 AC 08/08 PO 2037 Alprazolam 0.25 MG DAILY NEEDED PRN 08/08 2245 AC 08/08 PO 08/16 2243 2250 Aspirin Buffered 81 MG DAILY 08/08 1151 AC 08/08 PO 1228 Atorvastatin Calcium 5 MG 1700 08/08 1700 AC 08/08 PO 1700 Ceftriaxone Sodium 1,000 MG DAILY 08/09 1000 AC IV Ceftriaxone Sodium 0 .STK-MED ONE 08/08 1128 DC .ROUTE Ceftriaxone Sodium 1,000 MG ONCE ONE 08/08 1100 DC 08/08 IV 08/08 1101 1130 Ferrous Sulfate 325 MG DAILY 08/08 1155 AC 08/08 PO 1228 Heparin Sodium 5,000 UNIT Q8 08/08 1400 AC 08/09 (Porcine) SC 0526 Levothyroxine Sodium 0.112 MG DAILY AC 08/09 0700 AC 08/09 PO 0526 Morphine Sulfate 0.5 MG Q6P PRN 08/08 1200 AC IV Multivitamins 1 TAB DAILY 08/09 1000 AC Therapeutic PO Ondansetron HCl 0 .STK-MED ONE 08/08 0947 DC .ROUTE Ondansetron HCl 4 MG ONCE ONE 08/08 0930 DC 08/08 IV 08/08 0931 0944 Oxycodone HCl 5 MG Q6P PRN 08/08 1200 AC PO Sodium Chloride 1,000 ML Q8H 08/08 1245 DC 08/08 IV 08/08 2044 1659 Sodium Chloride 1,000 ML BOLUS ONE 08/08 1100 DC 08/08 IV 08/08 1159 1130 Sodium Chloride 1,000 ML BOLUS ONE 08/08 1100 DC IV 08/08 1159 Sodium Chloride 1,000 ML BOLUS ONE 08/08 0915 DC 08/08 IV 08/08 1014 0944 Last 24 Hrs of Lab/Christopher Results Last 24 Hrs of Labs/Mics: Laboratory Tests 08/09/16 0617: Anion Gap 6, Estimated GFR > 60, BUN/Creatinine Ratio 17.1, CBC w Diff NO MAN DIFF REQ, RBC 3.93 L, MCV 63.3 L, MCH 20.2 L, RDW 14.9 H, MPV 9.1, Gran % 77.9 H, Lymphocytes % 9.8 L, Monocytes % 10.5 H, Eosinophils % 1.6, Basophils % 0.2, Absolute Granulocytes 6.1, Absolute Lymphocytes 0.8 L, Absolute Monocytes 0.8 H, Absolute Eosinophils 0.1, Absolute Basophils 0, PUBS MCHC 31.9 L 08/08/16 1210: Lactic Acid Cancelled 08/08/16 1037: Urine Color YEL, Urine Clarity HAZY H, Urine pH 6.0, Ur Specific [place] 1.020, Urine Protein 30 H, Urine Ketones 15 H, Urine Nitrite POS H, Urine Bilirubin NEG, Urine Urobilinogen 0.2, Ur Leukocyte Esterase SMALL H, Ur Microscopic SEDIMENT EXAMINED, Urine RBC 1-3, Urine WBC > 75 H, Ur Epithelial Cells FEW, Urine Bacteria MANY H, Granular Casts 1-3 H, Urine Hemoglobin SMALL H, Urine Glucose NEG 08/08/16 0952: Anion Gap 7, Estimated GFR > 60, BUN/Creatinine Ratio 20.0, Glucose 145 H, Lactic Acid 1.2, Calcium 8.3 L, Total Bilirubin 1.6 H, AST 26, ALT 45, Alkaline Phosphatase 108, Troponin I 0.05, Total Protein 5.9 L, Albumin 3.4 L, Globulin 2.5, Albumin/Globulin Ratio 1.4, CBC w Diff MAN DIFF ORDERED, RBC 4.67, MCV 62.3 L, MCH 19.7 L, RDW 14.9 H, MPV 8.7, Gran % 89.4 H, Lymphocytes % 3.2 L, Monocytes % 7.2, Eosinophils % 0.2, Basophils % 0 L, Absolute Granulocytes 14.4 H, Segmented Neutrophils 84 H, Band Neutrophils 9 H, Absolute Lymphocytes 0.5 L, Lymphocytes 2 L, Monocytes 5, Absolute Monocytes 1.2 H, Absolute Eosinophils 0, Absolute Basophils 0, Platelet Estimate ADEQUATE , Hypochromic-Microcytic 2+, Poikilocytosis 2+, Anisocytosis 2+, Microcytic Cells 2+, Ovalocytes 1+, Elliptocytes 1+, PUBS MCHC 31.7 L Microbiology 08/08 1127 LOWER RESP: Respiratory Culture - COLB 08/08 1127 LOWER RESP: Gram Stain - COLB 08/08 1037 URINE ROUT: Urine Culture - RECD 08/08 0952 BLOOD: Blood Culture - RES GRAM NEGATIVE RODS 08/08 0938 BLOOD: Blood Culture - RES GRAM NEGATIVE RODS Assessment/Plan Assessment: 76 years old woman with past medical history significant for hypothyroidism status post thyroidectomy, hypertension, hyperlipidemia, osteoarthritis, history of anxiety, depression and skin cancer status post local excision of neoplastic skin lesion, status post right total hip arthroplasty for osteoarthritis of right hip on 10/12/2014, Left total knee arthroplasty 09/13/15 came to emergency department with chief complaint of shaking and chills. Patient was in emergency department 2 weeks ago for complaints of vertigo and had workup including CAT scan of head abdomen and pelvis that were negative. Patient is currently on the general medicine floor for the management of following problems Sepsis secondary to urinary tract infection Patient met the criteria of sepsis with a temperature of 100.8, tachycardia, white count of 16.1 and the source most likely a urinary tract infection. Continue IV ceftriaxone. Likely transition to oral antibiotics 08/10/2016. Blood cultures and urine cultures growing gram-negative rods. Sensitivities to follow. WBC: 16.1-->7.9 Tyelenol PRN if patient develops fever Incase of worsening Fever consider CT Abd/Pelvis. Spoke with the patient's daughter Maya on [phone] who requests to be updated on patient's progress. #Hypothyroidism His past medical history significant for hypothyroidism status post thyroidectomy. Continue with home dose of levothyroxine.0.112 mg. #Hypertension Last blood pressure 120/72. We will resume home antihypertensive medications. Lisinopril and hydrochlorothiazide. Verapamil 80 mg 3 times a day. This has been ajusted from home dose due to a lack of extended release verapamil at the inpatient pharmacy. # Hyperlipidemia Continue with Zocor 5 mg daily. #History of anxiety and depression Consider an 0.25MG ativan PRN for anxiety. Patient is on subcutaneous heparin for DVT prophylaxis Patient is on heart healthy diet Patient is full code Problem List: 1. Sepsis due to urinary tract infection 2. Muscle spasm 3. Vertigo Pain Ratin Pain Location: No Pain Pain Goal: Remain pain free Pain Plan: Tylenol PRN Tomorrow's Labs & Rationales: No Labs SHIRLENE WESTBROOK MD 08/09/16 1029: Attending MD Review Statement Attending Statement Attending MD Statement: examined this patient, discuss w/resident/PA/CHILDREN'S COURT MAGISTRATE, agreed w/resident/PA/CHILDREN'S COURT MAGISTRATE, reviewed EMR data (avail) Attending Assessment/Plan: 76F hypothyroidism status post thyroidectomy, hypertension, hyperlipidemia, osteoarthritis, history of anxiety, depression and skin cancer status post local excision of neoplastic skin lesion, status post right total hip arthroplasty for osteoarthritis of right hip on 10/12/2014, left total knee arthroplasty 09/13/15 admitted with sepsis secondary to UTI with GNR bacteremia, complicated by complaints of vertigo and left leg pain, both of which have resolved. Patient feels extremely well today. She has no complaints, is walking and eating well, and denies pain. Afebrile overnight. 1. Sepsis (resolved) 2. UTI 3. Generalized weakness 4. Vertigo (resolved) 5. Gram negative bacteremia Plan - Continue on general medicine - Continue Ceftriaxone - Follow cultures - Continue home medications - DVT PPx - Anticipated discharge tomorrow once culture results return. Please send CMR for review. - Anticipated discharge tomorrow once culture results return. Please send CMR for review.
--- NOTE | 2016-08-09 06:27 | Event Note ---
Event Note Event Note: Received a call from microbiology reporting that one anaerobic bottle positive for gram-negative rods. One hour later received another call from microbiology reporting that the second anaerobic bottle is positive for gram-negative rods. Patient has been treating for UTI by ceftriaxone, previous urine culture positive for Escherichia coli. Patient is clinically improving. Will follow up culture for aerobic growth of gram-negative rods (mostly Ecoli) as sometimes Escherichia coli can start to grow anaerobics before aerobics.
[2016-08-09 07:58] LABS: ABSOLUTE BASOPHIL COUNT 0 /CUMM (0.0-0.2); ABSOLUTE EOSINOPHIL COUNT 0.1 /CUMM (0.0-0.7); BASOPHIL % 0.2 % (0.0-2.0); GRANULOCYTE % 77.9 % (42.2-75.2); HEMATOCRIT 24.9 % (37-47); MEAN CORPUSCULAR VOLUME 63.3 FL (81.0-99.0); MEAN PLATELET VOLUME 9.1 FL (7.4-10.4); RED BLOOD CELL CT 3.93 /CUMM (4.20-5.40)
[2016-08-09 08:23] LABS: ABSOLUTE GRANULOCYTE CT 6.1 /CUMM (1.4-6.5); ABSOLUTE LYMPH COUNT 0.8 /CUMM (1.2-3.4); ABSOLUTE MONOCYTE COUNT 0.8 /CUMM (0.10-0.60); EOSINOPHIL % 1.6 % (0-5); MEAN CORPUSCULAR HGB 20.2 PG (27.0-31.0); MEAN CORPUSCULAR HGB CONC 31.9 G/DL (33.0-37.0); PLATELET COUNT 236 /CUMM (130-400); RBC DISTRIBUTION WIDTH 14.9 % (11.5-14.5)
[2016-08-09 08:28] LABS: WHITE BLOOD CELL COUNT 7.9 /CUMM (4.8-10.8)
--- NOTE | 2016-08-09 11:12 | NUR ---
PHYSICAL THERAPY- CONSULT RECEIVED, CHART REVIEWED. PER NSG REPORT IN MDR, PT INDEPENDENTLY AMB W/ SC. S/W ATTENDING MD WHO REPORTS INITIAL CONSULT WAS FOR VESTIBULAR TX, HOWEVER, PT'S VERTIGINOUS SX HAVE RESOLVED. NO SKILLED ACUTE P.T. NEEDS IDENTIFIED, WILL NOT FOLLOW.
[2016-08-09] MEDS ORDERED: KEFLEX500 M1 PO (14:15)
[2016-08-09 14:17] VITALS: BP 128/70
[2016-08-09 22:02] VITALS: BP 90/50
[2016-08-09 22:03] VITALS: BP 118/70
[2016-08-10 06:29] VITALS: BP 110/60
--- NOTE | 2016-08-10 07:59 | PN- Housestaff ---
See Addendum Subjective Follow-up For: UTI Subjective: Patient is seen and examined while seated comfortably on a recliner. She is pleasantly cooperative and does not endorse any acute complaints including fever , chills, abdominal pain, dysuria, shortness of breath, chest pain or palpitation. No Acute overnight event reported by nursing staff. Review of Systems Constitutional: Reports: see HPI. Objective Last 24 Hrs of Vital Signs/I&O Vital Signs Date Time Temp Pulse Resp B/P B/P Pulse O2 O2 Flow FiO2 Mean Ox Delivery Rate 08/10 0821 68 132/78 08/10 0629 97.6 68 20 110/60 94 Room Air 08/09 2203 97.9 64 18 118/70 96 Nasal Cannula 08/09 1417 97.5 80 18 128/70 97 Room Air 08/09 1337 82 128/70 Intake & Output 08/10 1600 08/10 0800 08/10 0000 Intake Total 120 210 Output Total 200 Balance -200 120 210 Intake, IV 10 Intake, Oral 120 200 Output, Urine 200 Physical Exam General Appearance: Alert, Oriented X3, Cooperative Other Physical Findings: Skin Temp/Moisture Exam: Warm/Dry Sepsis Skin Exam (color): Normal for Ethnicity Lymphatic: Cervical nl Cardiovascular: Regular Rate, Normal S1, Normal S2 Lungs: Clear to Auscultation Abdomen: Normal Bowel Sounds, Soft, No Tenderness Neurological: Normal Gait, Normal Speech, Strength at 5/5 X4 Ext Extremities: No Edema Current Medications: Current Medications Sig/Hugo Start time Last Medication Dose Route Stop Time Status Admin Acetaminophen 650 MG Q6P PRN 08/08 1200 AC 08/08 PO 2037 Alprazolam 0.25 MG DAILY NEEDED PRN 08/08 2245 AC 08/08 PO 08/15 224 2250 Aspirin Buffered 81 MG DAILY 08/08 1151 AC 08/10 PO 0820 Atorvastatin Calcium 5 MG 1700 08/08 1700 AC 08/09 PO 1637 Ceftriaxone Sodium 1,000 MG DAILY 08/09 1000 AC 08/10 IV 0823 Ferrous Sulfate 325 MG DAILY 08/08 1155 AC 08/10 PO 0820 Heparin Sodium 5,000 UNIT Q8 08/08 1400 AC 08/10 (Porcine) SC 0548 Hydrochlorothiazide 12.5 MG DAILY 08/09 1113 AC 08/10 PO 0820 Levothyroxine Sodium 0.112 MG DAILY AC 08/09 0700 AC 08/10 PO 0550 Lisinopril 20 MG DAILY 08/09 1108 AC 08/10 PO 0821 Morphine Sulfate 0.5 MG Q6P PRN 08/08 1200 AC IV Multivitamins 1 TAB DAILY 08/09 1000 AC 08/10 Therapeutic PO 0821 Oxycodone HCl 5 MG Q6P PRN 08/08 1200 AC PO Verapamil HCl 80 MG TID 08/09 1113 AC 08/10 PO 0819 Verapamil HCl 300 MG TID 08/09 1109 DC PO Last 24 Hrs of Lab/Christopher Results Last 24 Hrs of Labs/Mics: Vital Signs Date Time Temp Pulse Resp B/P B/P Pulse O2 O2 Flow FiO2 Mean Ox Delivery Rate 08/10 0821 68 132/78 08/10 0629 97.6 68 20 110/60 94 Room Air Intake & Output 08/10 1600 Intake Total Output Total 200 Balance -200 Output, Urine 200 Assessment/Plan Assessment: 76 years old woman with past medical history significant for hypothyroidism status post thyroidectomy, hypertension, hyperlipidemia, osteoarthritis, history of anxiety, depression and skin cancer status post local excision of neoplastic skin lesion, status post right total hip arthroplasty for osteoarthritis of right hip on 10/12/2014, Left total knee arthroplasty 09/13/15 came to emergency department with chief complaint of shaking and chills. Patient was in emergency department 2 weeks ago for complaints of vertigo and had workup including CAT scan of head abdomen and pelvis that were negative. Patient is currently on the general medicine floor for the management of following problems Sepsis secondary to urinary tract infection Patient met the criteria of sepsis with a temperature of 100.8, tachycardia, white count of 16.1 and the source most likely a urinary tract infection. Continue IV ceftriaxone. Likely transition to oral antibiotics 08/10/2016. Blood cultures and urine cultures growing gram-negative rods. Blood and urine cultures growing E.coli was pansensitive based on the blood cultures, urine cultures sensitivity pending.Given that the patient presented in a septic condition and had bacteremia will treat for total antibiotic course of 14 days. WBC: 16.1-->7.9 Tyelenol PRN if patient develops fever Incase of worsening Fever consider CT Abd/Pelvis. Spoke with the patient's daughter Maya on [phone] who requests to be updated on patient's progress. #Hypothyroidism His past medical history significant for hypothyroidism status post thyroidectomy. Continue with home dose of levothyroxine.0.112 mg. #Hypertension Last blood pressure 120/72. We will resume home antihypertensive medications. Lisinopril and hydrochlorothiazide. Verapamil 80 mg 3 times a day. This has been ajusted from home dose due to a lack of extended release verapamil at the inpatient pharmacy. # Hyperlipidemia Continue with Zocor 5 mg daily. #History of anxiety and depression Consider an 0.25MG ativan PRN for anxiety. Patient is on subcutaneous heparin for DVT prophylaxis Patient is on heart healthy diet Patient is full code Problem List: 1. Sepsis due to urinary tract infection Pain Ratin Pain Location: NONE Pain Goal: Remain pain free Pain Plan: per pathway Tomorrow's Labs & Rationales: none-ready for discharge
[2016-08-10] MEDS ORDERED: KEFLEX500 M1 PO ×3 (11:17→11:34)
--- NOTE | 2016-08-10 12:24 | NUR ---
PT HAD C/O NEW ONSET NUMBNESS TO HER L ANKLE/FOOT. PT REPORTS SHE HAD SOME BASELINE NUMBNESS TO HER LLE AFTER HER "SURGERY" BUT HAS NOT FELT THE NUMBNESS BY THE FOOT AREA. PT CONCERNED. RN NOTIFIED PT IT POSSIBLY WAS IN A UNCOMFORTABLE SPOT FOR A PERIOD OF TIME. +CM. PT ENCORAGED ROM EXERCISES AND PT REPORTED SHE WOULD LIKE TO WALK. PT ASSISTED TO AMBULATE WITH USE OF CANE. PT AMBULATED IN HALLS. DR JOYCE NOTIFIED OF PT'S NUMBNESS AND THAT PT WOULD LIKE TO SEE HIM. PT DOES REPORT THE NUMBNESS IS SUBSIDING AT THIS TIME. PT IS NERVOUS ABOUT IT- PRN XANAX AVAILABLE BUT PT DECLINES ITS USE AT THIS TIME. EMOTIONAL SUPPORT AND REASSURANCE PROVIDED. PENDING POSSIBLE MD ARRIVAL TO FLOOR. WILL CONT TO MONITOR.
--- NOTE | 2016-08-10 13:14 | NUR ---
PT SEEN AND ASSESSED BY DR. JOYCE. PT'S LLE ELEVATED. PAIN RX PROVIDED. DISCHARGE ORDER CANCELLED. TO MONITOR PT TONIGHT AND RE-ASSESS TOMORROW. TO NOTIFY MD WITH ANY CHANGES. WILL CONT TO MONITOR.
[2016-08-10 14:09] VITALS: BP 132/60
--- NOTE | 2016-08-10 15:29 | NUR ---
PT REPORTS HER PAIN AND DISCOMFORT TO HER L ANKLE MUCH IMPROVED AFTER THE PAIN MEDICINE. PT IN GOOD SPIRITS. REGINO MAINTAINED. JANE WILLARD TO FOLLOW.
--- NOTE | 2016-08-10 17:31 | NUR ---
PT STATES PAIN TO LEFT ANKLE LESS THAN BEFORE PAIN MEDICATION TAKEN, HOWEVER STATES THAT SINCE SHE RECIEVED THIS MED, ROXICODONE, SHE NOTICED THAT HER NOSE BEGAN TO ITCH. PT ANXIOUS ABOUT THIS- CALL PLACED TO CHAMBER WORKER TO COME EVAL. NO RASH NOTED.
--- NOTE | 2016-08-10 18:18 | NUR ---
HAYLEE FORBES IN TO SPEAK TO PT AT THIS TIME REGARDING C/O HER "NOSE ITCHING FROM ROXICODONE", ROXICODONE ADDED TO ALLERGY/ADVERSE REACTION LIST, PT STATES SHE TAKES TYLENOL WITH CODEINE AT HOME FOR PAIN AND ASKING FOR THE SAME WHILE IN THE HOSPITAL. SEE NEW ORDERS. PT VSS, NO SOB/ISSUES WITH BREATHING, DENIES CP. "MY NOSE JUST ITCHES A LOT EVER SINCE THAT PAIN MEDICINE" SAFETY PRECAUTIONS MAINTAINED.
[2016-08-10 21:44] VITALS: BP 132/70
[2016-08-11 06:43] VITALS: BP 130/70
--- NOTE | 2016-08-11 07:18 | PN- Housestaff ---
See Addendum Subjective Follow-up For: Sepsis 2/2 to UTI Subjective: Ms Dunn was seen and examined this morning. Resting comfortably on the chair beside the bed. She denies no issues overnight. States that she feels remarkably better. Denies any muscle spasm and states that her symptoms have resolved. She denies any fever, chills, nausea, vomiting. Has been tolerating by mouth intake well. States that she would like to be discharged today. Review of Systems Constitutional: Reports: see HPI. Objective Last 24 Hrs of Vital Signs/I&O Vital Signs Date Time Temp Pulse Resp B/P B/P Pulse O2 O2 Flow FiO2 Mean Ox Delivery Rate 08/11 0923 74 130/68 08/11 0643 98.0 64 20 130/70 94 Room Air 08/10 2144 98.0 69 20 132/70 96 Room Air 08/10 1409 97.8 75 18 132/60 95 Room Air Intake & Output 08/11 1600 08/11 0800 08/11 0000 Intake Total 150 Output Total Balance 150 Intake, IV 0 Intake, Oral 150 Number 0 Bowel Movements Physical Exam General Appearance: Alert, Oriented X3, Cooperative Cardiovascular: Regular Rate, Normal S1, Normal S2 Lungs: Clear to Auscultation Abdomen: Normal Bowel Sounds, Soft, No Tenderness Neurological: Normal Gait, Normal Speech, Strength at 5/5 X4 Ext Extremities: No Edema Current Medications: Current Medications Sig/Hugo Start time Last Medication Dose Route Stop Time Status Admin Acetaminophen 650 MG Q6P PRN 08/08 1200 AC 08/08 PO 2038 Alprazolam 0.25 MG DAILY NEEDED PRN 08/08 2245 AC 08/08 PO 08/15 2244 2250 Aspirin Buffered 81 MG DAILY 08/08 1151 AC 08/11 PO 0923 Atorvastatin Calcium 5 MG 1700 08/08 1700 AC 08/10 PO 1550 Ceftriaxone Sodium 1,000 MG DAILY 08/09 1000 AC 08/11 IV 0924 Ferrous Sulfate 325 MG DAILY 08/08 1155 AC 08/11 PO 0923 Heparin Sodium 5,000 UNIT Q8 08/08 1400 AC 08/11 (Porcine) SC 0600 Hydrochlorothiazide 12.5 MG DAILY 08/09 1113 AC 08/11 PO 0922 Levothyroxine Sodium 0.112 MG DAILY AC 08/09 0700 AC 08/11 PO 0559 Lisinopril 20 MG DAILY 08/09 1108 AC 08/11 PO 0923 Morphine Sulfate 0.5 MG Q6P PRN 08/08 1200 AC IV Multivitamins 1 TAB DAILY 08/09 1000 AC 08/11 Therapeutic PO 09 Oxycodone HCl 5 MG Q6P PRN 08/08 1200 DC 08/10 PO 1307 Verapamil HCl 80 MG TID 08/09 1113 AC 08/11 PO 0924 Assessment/Plan Assessment: 76 years old woman with past medical history significant for hypothyroidism status post thyroidectomy, hypertension, hyperlipidemia, osteoarthritis, history of anxiety, depression and skin cancer status post local excision of neoplastic skin lesion, status post right total hip arthroplasty for osteoarthritis of right hip on 10/12/2014, Left total knee arthroplasty 09/13/15 came to emergency department with chief complaint of shaking and chills. Patient was in emergency department 2 weeks ago for complaints of vertigo and had workup including CAT scan of head abdomen and pelvis that were negative. Patient is currently on the general medicine floor for the management of following problems Sepsis secondary to urinary tract infection Patient met the criteria of sepsis with a temperature of 100.8, tachycardia, white count of 16.1 and the source most likely a urinary tract infection. Continue IV ceftriaxone. Likely transition to oral antibiotics 08/10/2016. Blood cultures and urine cultures growing gram-negative rods. Blood and urine cultures growing E.coli was pansensitive based on the blood cultures, urine cultures sensitivity pending.Given that the patient presented in a septic condition and had bacteremia will treat for total antibiotic course of 14 days. Sensitivities have returned WBC: 16.1-->7.9 Tyelenol PRN if patient develops fever Incase of worsening Fever consider CT Abd/Pelvis. Spoke with the patient's daughter Maya on [phone] who requests to be updated on patient's progress. #Hypothyroidism His past medical history significant for hypothyroidism status post thyroidectomy. Continue with home dose of levothyroxine.0.112 mg. #Hypertension Last blood pressure 130/68. Conitinue antihypertensive medications. Lisinopril and hydrochlorothiazide. Verapamil 80 mg 3 times a day. This has been ajusted from home dose due to a lack of extended release verapamil at the inpatient pharmacy. # Hyperlipidemia Continue with Zocor 5 mg daily. #History of anxiety and depression Consider an 0.25MG ativan PRN for anxiety. Patient is on subcutaneous heparin for DVT prophylaxis Patient is on heart healthy diet Patient is full code Problem List: 1. Sepsis due to urinary tract infection 2. Muscle spasm 3. Vertigo Pain Ratin Pain Location: No Pain Pain Goal: Remain pain free Pain Plan: Morphine Tomorrow's Labs & Rationales: No Labs
--- NOTE | 2016-08-11 11:36 | Discharge Summary ---
Visit Information Visit Dates Admission Date: 08/08/16 Discharge Date: 08/11/16 Hospital Course Course Attending Physician: SHIRLENE WESTBROOK MD Primary Care Physician: MARY HURTADO MD, I. Hospital Course: Ms Dunn is a 76 year old woman with past medical history significant for hypothyroidism status post thyroidectomy, hypertension, hyperlipidemia, osteoarthritis, history of anxiety, depression and skin cancer status post local excision of neoplastic skin lesion, status post right total hip arthroplasty for osteoarthritis of right hip on 10/12/2014, Left total knee arthroplasty 09/13/15 who came to emergency department at [facility] on 08/08/2016 with chief complaint of shaking and chills. Prior to admission, She was seen in emergency department on Friday (08/05) complaining of leg pain that she has been having for the last 3 months. She was given Flexeril and discharged home. She experienced tremors after starting the medication and came back to ER the next day where she was told to stop the Flexeril after it was presumed she had a developed a reaction to this medication. At the time of admission, vitals were: T: 100.8, CO: 113, RR: 20, B/P: 159/80, Saturating 96% on RA Labs: WBC: 16.1, H/H 9.2/29.1. Na 132. K: 3.6. Calcium 8.3 Patient was admitted to the General medicine floor and below is a summary of the care she received under us. #Sepsis secondary to urinary tract infection Patient met sepsis criteria with a temperature of 100.8, tachycardia, white count of 16.1 and the source most likely a urinary tract infection. The patient was started on IV Cefrtiaxone at the time of admission. Her blood and urine cultures were positive E Coli. She was conitinued on IV Ceftriaxone through out her admission. She was discharged home on an additional twelve days of Oral antibiotic coverage. #Hypothyroidism His past medical history significant for hypothyroidism status post thyroidectomy. We continued home dose of levothyroxine.0.112 mg. #Hypertension At the time of admission, the patients antihypertensives were held. On day two of admission, we continued the patient antihypertensives, Lisinopril and hydrochlorothiazide. We also dosed Verapamil 80 mg 3 times a day, in exchange of her ER Verapamil. # Hyperlipidemia We continued the patient on Zocor 5 mg daily. #Code Patient code status is full code Allergies: Coded Allergies: cyclobenzaprine (From FLEXERIL) (Intermediate, "REALLY BAD SHAKES AND ANXIETY" 08/10/16) Penicillins (Mild, RASH 05/15/15) oxycodone (From ROXICODONE) (Mild, ITCHING 08/10/16) poison felicitas extract (UNKNOWN 09/01/15) Pertinent Lab Results: SERVICE DATE: 08/08/16 EXAM TYPE: RAD - XRY-PORTABLE CHEST XRAY EXAMINATION: XR PORTABLE CHEST CLINICAL INFORMATION: Shaking chills. COMPARISON: CT chest 11/10/2012 TECHNIQUE: Portable frontal view of the chest was obtained. FINDINGS: The cardiomediastinal silhouette is stable. Patchy airspace opacity in the right lung base. No pneumothorax or definite pleural effusions. IMPRESSION: Patchy airspace opacity in the right lung base may reflect atelectasis/scarring as seen on prior imaging, however, a superimposed developing infiltrate cannot be excluded. DICTATED BY: JOHN LENNON,CHANTEL Espitia Disposition Summary Disposition Principal Diagnosis: #Sepsis secondary to urinary tract infection Additional Diagnosis: Hypertension Hyperlipidemia Hypothyroidism Discharge Disposition: home or self care Discharge Instructions General Discharge Information Code Status: Full Code Patient's Diet: Heart Healthy Patient's Activity: As Tolerated Follow-Up Instructions/Appts: Please follow-up with your primary care physician within 7 days of discharge. Please inform your primary care physician of this admission to the hospital. Medications at Discharge Discharge Medications: Continue taking these medications: Alprazolam (Alprazolam) 0.25 MG TABLET 1-2 Tablet ORAL as needed for ANXIETY Comments: Last Taken: 08/08/16 Time: 11 PM Ergocalciferol (Vitamin D2) (Vitamin D2) 50,000 UNIT CAPSULE 1 Capsule ORAL EVERY 2 WEEKS Comments: NOT GIVEN IN HOSPITAL Simvastatin (Simvastatin*) 5 MG TABLET 1 Tablet ORAL DAILY Comments: NOT GIVEN IN HOSPITAL ATORVASTATIN GIVEN 08/10/16 @ 4PM Verapamil HCl (Verapamil ER Pm) 300 MG CAP24H.PCT 1 Capsule ORAL DAILY Comments: Last Taken: 08/11/16 Time: 930 AM Lisinopril/Hydrochlorothiazide (Lisinopril-Hctz 20-12.5 MG Tab) 20 MG-12.5 MG TABLET 2 Tablet ORAL DAILY Qty = 60 Comments: Last Taken: 08/11/16 Time: 930 AM Levothyroxine Sodium (Levothyroxine Sodium) 112 MCG TABLET 1 Tablet ORAL DAILY Qty = 90 Comments: Last Taken: 08/11/16 Time: 6 AM Acetaminophen With Codeine (Acetaminophen-Cod #3 Tablet) 300 MG-30 MG TABLET 1 Tablet ORAL as needed for PAIN/SLEEP Qty = 60 Comments: NOT GIVEN IN HOSPITAL Aspirin (Ecotrin*) 81 MG TABLET.DR 1 Tablet ORAL DAILY Comments: Last Taken: 08/11/16 Time: 930 AM Multivitamin (Multi-Day Vitamins) 1 EACH TABLET 1 Tablet ORAL DAILY Comments: Last Taken: 08/11/16 Time: 930 AM Cyanocobalamin (Vitamin B-12) 1,000 MCG TABLET 1,000 Microgram ORAL DAILY Comments: NOT GIVEN IN HOSPITAL Ferrous Sulfate (Ferrous Sulfate) 325 MG (65 MG IRON) TABLET 1 Tablet ORAL DAILY Comments: Last Taken: 08/11/16 Time: 930 AM Start taking the following new medications: Cephalexin (Keflex) 500 MG CAPSULE 1 Capsule ORAL TWICE DAILY Qty = 24 No Refills Instructions: .. Comments: NOT GIVEN IN HOSPITAL IV ANTIBIOTIC WAS GIVEN 08/11/16M @ 930 AM Copies To: GENESIS LENNON,MARY Carr
[2016-08-11] MEDS ORDERED: KEFLEX500 M1 PO (11:57)
[2016-08-11 13:59] VITALS: BP 130/60
[2016-08-16] MEDS ORDERED: ALEVE220 M2 (14:19)
[2016-08-16] MEDS ORDERED: VITAMIN B122500 MC2 PO (14:19)
[2016-08-16] MEDS ORDERED: HYDROCODON-ACE1 EAC2 PO (14:20)
== END 2016-08-11 15:00 | DRG 872 ==
LOC: ERH 08:49 → 2NA 11:03 → ERHI 11:03 → ENRESERV 12:52 → ENTRNSPT 13:28 → EDTRNSPTSTS 13:38 → 2NA 13:46 → CMPTRNSPT 14:20 → ENPENDDIS 08-10 12:15 → 2NA 08-11 15:00
PROVIDERS: Emergency Medicine; Student in an Organized Health Care Education/Training Program; ADMIT Internal Medicine
DX: A41.9 Sepsis, unspecified organism (principal); N39.0 Urinary tract infection, site not specified; I10 Essential (primary) hypertension; B96.20 Unspecified Escherichia coli [E. coli] as the cause of diseases classified elsewhere; E89.0 Postprocedural hypothyroidism; E78.5 Hyperlipidemia, unspecified; F41.9 Anxiety disorder, unspecified; F32.9 Major depressive disorder, single episode, unspecified; R42 Dizziness and giddiness; M62.838 Other muscle spasm; M19.90 Unspecified osteoarthritis, unspecified site; Z96.652 Presence of left artificial knee joint; Z96.641 Presence of right artificial hip joint; Z88.0 Allergy status to penicillin; Z96.653 Presence of artificial knee joint, bilateral
CPT/HCPCS: 2NASP; 36415; 81001; 82436; 87040; 87070; 87086; 93005; 93010; 96374; 96375; J0696; J1644; J2405

== ENCOUNTER 2016-08-28 01:49 | Inpatient (IN) | payer OTHER ==
[~2016-08-28] VITALS: Ht 165.1 cm; Wt 95.3 kg
[~2016-08-28 01:49] MED LIST changes: +ALEVE220 M2; +FERROUS SULFAT325 M3 PO; +HYDROCODON-ACE1 EAC2 PO; +KEFLEX500 M1 PO; +VITAMIN B122500 MC2 PO
--- NOTE | 2016-08-28 09:55 | Operative Report ---
Operative/Inv Procedure Report Surgery Date: 08/28/16 Name of Procedure: Left total hip arthroplasty Pre-Operative Diagnosis: Primary osteoarthritis left hip Post-Operative Diagnosis: Same Estimated Blood Loss: 200 CC Surgeon/Scheduling Analyst: IRA LENNON,JOHN Ladd. A PAC Anesthesia: block (spinal) IV Fluids: See anesthesia record Implants: [place] secure fit femoral stem size 8, 56 acetabular shell, 36 [place] head -2.5 neck length Drains: None Specimens: Femoral head to pathology Complications: None Condition: Stable Operative Indication: Patient is a 76-year-old female with osteoarthritis of left hip that has failed conservative treatment and she wished to proceed with a left total hip arthroplasty. The risks and benefits the procedure were discussed with the patient detail. Skilled set of hands was necessary provided by physician program support assistant Mainor Ladd weighted with retraction positioning and component assembly throughout the case. Operative/Procedure Note Note: Once informed consent was obtained and the correct limb was identified the patient brought to operating placed on the table after administration of spinal anesthesia. She is placed in a right lateral decubitus position on the pegboard with an axillary roll in place and all bony prominences well-padded. [place] catheter had been inserted. The right lower 70 is prepped and draped usual sterile fashion. To begin the procedure standard incision made for posterior portion hip. Sharp dissection was carried down through the skin and subcutaneous tissue. The tensor fascia was nicked and incised with a curved Anderson scissors. The gluteus maximum fibers were split in line bluntly. Retractors were placed underneath the gluteus medius muscle belly and around the femoral neck. Piriformis tendon was released from its insertion point on the piriformis fossa. Retractor was then placed deep to the gluteus minimus muscle belly and the capsule was identified. The superior capsulotomy was performed. This was tagged for later repair. The hip was dislocated. Femoral cut of the neck was performed less than 1 fingerbreadth above the lesser trochanter. Femoral head was passed off as specimen. Inferior and anterior acetabular retractors were placed in the femur was retracted out of the way. Massage Operator removed from acetabulum. A curet was used to find the floor the acetabulum and the medial wall. The labrum was removed sharply. Reaming was begun with a 47 reamer and we sequentially reamed up to a 55 reamer. A 56 trial acetabular shell was placed and found to be a good press-fit. 56 acetabular shell was opened and press-fit into the acetabulum without complication. A liner with a 10 posterior lip was opened and locked into the acetabular shell. A Ray-Satinder was placed in protected. Attention was turned to the femur. The femur was internally rotated and a femoral neck retractor was placed underneath the femoral neck. Box osteotome was used to remove lateral femoral neck and enter the femoral canal. Reaming was then begun and we sequentially reamed up to a size 8 reamer for the secure fit system. We then broached up to a size 8 broach. The size 8 broach was an excellent fit and left in place for trial reduction. A 36 mm head with a 0 neck length was placed. Leg lengths were slightly off so we went to a -2.5 neck length. Leg lengths were close to equal and we took the left leg through a range of motion. Hip was stable in 90 of flexion as well as 90 of flexion with 30 of internal rotation. The hip was redislocated and the prosthetic components removed. The femoral canal was pulse lavaged and a size 8 press-fit Secur-Fit stem was opened and placed down the femoral canal without complication. A -2.5 neck length with a 36 mm head was opened and placed onto the stem and the hip was re-located. Again the range of motion was stable and leg lengths were good. The wound was pulse lavaged The capsule and piriformis tendon were repaired back to the greater trochanter through drill holes. The fascia was then closed with #1 looped PDS suture. The deep tissues were closed #1 Vicryl sutures and the subcutaneous tissues closed with 2-0 Vicryl interrupted sutures. Skin was closed sage and sterile dressing was applied. The patient was awakened taken recovery room in stable condition.
--- NOTE | 2016-08-28 10:19 | RADIOLOGY REPORT ---
EXAMINATION: XR HIP, LEFT CLINICAL INFORMATION: Status post left hip replacement COMPARISON: CT scan of the abdomen and pelvis July 2016 TECHNIQUE: Two views of the left hip. FINDINGS: There is a left total hip arthroplasty with the components in usual position. There is no periprosthetic fracture or concerning area of bony lucency. A small amount of air is noted in the soft tissues consistent with surgery. Skin sage are present. IMPRESSION: Left total hip arthroplasty without complication by x-ray.
[2016-08-28 12:00] VITALS: BP 122/70
[2016-08-28 15:02] VITALS: BP 118/60
--- NOTE | 2016-08-28 15:35 | PN- Orthopedic ---
Subjective Subjective: POST-OP NOTE: No complaints. Ambulated with PT already without symptoms. No dizziness. No shortness of breath. No chest pains. Tolerating coffee and food. No nausea. Reports recent history of UTI and ?urosepsis, for which she reports completing a course of antibiotics. She states her goal is to go to a rehab facility, which she apparently is pre-booked for. Objective Vital Signs and I&Os Vital Signs Date Time Temp Pulse Resp B/P B/P Pulse O2 O2 Flow FiO2 Mean Ox Delivery Rate 08/28 1502 98.2 80 18 118/60 96 Room Air 08/28 1200 96.0 62 18 122/70 95 Room Air Intake & Output 08/28 1600 08/28 0800 08/28 0000 08/27 1600 08/27 0800 08/27 0000 Intake Total Output Total Balance Patient 210 lb Weight Weight Estimated Measurement Method Physical Exam: General - alert & oriented x 3. comfortable. no acute distress. Lungs - clear bilaterally. no w/w/r. Cardiac - s1s2. reg. Abdomen - soft. nontender. - nolasco draining clear, yellow urine. Extremities - warm bilaterally. no c/c/e. left hip dressing c/d/i. no drains. no hematoma. nvi. athrombics active b/l. Current Medications: Current Medications Sig/Hugo Start time Last Medication Dose Route Stop Time Status Admin Acetaminophen 1,000 MG .STK-MED ONE 08/29 711 DC IV 08/28 712 Acetaminophen/ 1 TAB Q6P PRN 08/28 1145 AC Hydrocodone Bitart PO Acetaminophen/ 2 TAB Q6P PRN 08/28 1145 AC Hydrocodone Bitart PO Apixaban 2.5 MG BID 08/29 1000 AC PO Cyanocobalamin 1,000 MCG DAILY 08/28 1000 AC PO Dextrose/Lactated 1,000 ML Q13H 08/28 1145 AC 08/28 Ringer's IV 1244 Docusate Sodium 100 MG DAILY NEEDED PRN 08/28 1145 AC PO Fentanyl Citrate 100 MCG .STK-MED ONE 08/28 712 DC IM 08/28 713 Fentanyl Citrate 500 MCG .STK-MED ONE 08/29 711 DC IM 08/28 712 Ferrous Sulfate 325 MG DAILY 08/28 1000 AC PO Hydrochlorothiazide 25 MG DAILY 08/29 1000 AC PO Hydromorphone HCl 2 MG .STK-MED ONE 08/29 711 DC IM 08/28 07 Levothyroxine Sodium 0.112 MG DAILY 08/28 1000 AC PO Lisinopril 40 MG DAILY 08/29 1000 AC PO Midazolam HCl 4 MG .STK-MED ONE 08/28 712 DC IM 08/28 0714 Morphine Sulfate 2 MG Q3P PRN 08/28 1145 AC 08/28 IV 1250 Morphine Sulfate 4 MG Q3P PRN 08/28 1145 AC IV Ondansetron HCl 4 MG Q6P PRN 08/28 1145 AC IV Polyethylene Glycol 17 GM DAILY NEEDED PRN 08/28 1145 AC PO Ramelteon 8 MG AT BEDTIME NEED.. 08/28 1145 AC PO Senna/Docusate Sodium 2 TAB AT BEDTIME NEED.. 08/28 1145 AC PO Tranexamic Acid 2,000 MG .STK-MED ONE 08/29 711 DC IV 08/28 07 Vancomycin HCl 1,000 MG ONCE ONE 08/28 1900 AC Sodium Chloride 250 ML IV 08/28 1959 Vancomycin HCl 1,000 MG ONCE 08/28 0000 DC Sodium Chloride 250 ML IV 08/28 2359 Verapamil HCl 300 MG DAILY 08/28 1000 CAN PO Verapamil HCl 300 MG DAILY 08/28 1000 AC PO Assessment/Plan Assessment/Plan This 76 year old female with hx hypothyroidism, htn, recent uti/urosepsis, POD#0 s/p left total hip replacement for primary osteoarthritis, left hip advance diet as tolerated pain control as needed continue PT. total hip precautions eliquis BID - dvt ppx d/c iv fluids and nolasco in am. f/u urine cx devin-operative vanco f/u am labs dressing change POD#0 home meds ordered STR planning will d/w Core Measures/Miscellaneous Venous Thromboembolism VTE Risk Factors: Age > 40, Obesity, Surgery VTE Contraindications: No Contraindications VTE Diagnosis: No Beta Mojgan Is Beta Mojgan a Home Med? No Antibiotics Is Patient on Antibiotics? Yes If Yes: prophylaxis
[2016-08-28 19:11] VITALS: BP 110/66
[2016-08-28 22:03] VITALS: BP 126/60
[2016-08-29 01:56] VITALS: BP 144/80
[2016-08-29 06:00] VITALS: BP 148/76
--- NOTE | 2016-08-29 07:37 | PN- Orthopedic ---
Surgical Brief Attending Note Brief Attending Note: Patient seen this morning postop day #1 status post left total hip arthroplasty. She's doing well. She complaining of back pain. She has had degenerative disc disease. Her left hip is not bothering her much. Pain seems to be controlled with her medication. On physical exam the patient awake alert and oriented. Examination left lower extremity reveals minimal pain with motion. The left lower 70 is grossly neurovascularly intact. She is moving all of her toes. Sensation light touch is intact. She has no calf tenderness. Assessment status post left total hip arthroplasty. Patient will continue with physical therapy. Follow-up morning labs. Continue with anticoagulation and pain control.
[2016-08-29 08:59] LABS: ABSOLUTE BASOPHIL COUNT 0 /CUMM (0.0-0.2); ABSOLUTE EOSINOPHIL COUNT 0.2 /CUMM (0.0-0.7); ABSOLUTE GRANULOCYTE CT 5.3 /CUMM (1.4-6.5); ABSOLUTE LYMPH COUNT 0.8 /CUMM (1.2-3.4); ABSOLUTE MONOCYTE COUNT 0.4 /CUMM (0.10-0.60); BASOPHIL % 0.2 % (0.0-2.0); GRANULOCYTE % 78.4 % (42.2-75.2); HEMATOCRIT 24.3 % (37-47); MEAN CORPUSCULAR HGB 20.3 PG (27.0-31.0); MEAN CORPUSCULAR HGB CONC 31.4 G/DL (33.0-37.0); MEAN CORPUSCULAR VOLUME 64.7 FL (81.0-99.0); MEAN PLATELET VOLUME 9.8 FL (7.4-10.4); PLATELET COUNT 163 /CUMM (130-400); RBC DISTRIBUTION WIDTH 16.5 % (11.5-14.5); RED BLOOD CELL CT 3.76 /CUMM (4.20-5.40); WHITE BLOOD CELL COUNT 6.7 /CUMM (4.8-10.8)
--- NOTE | 2016-08-29 11:20 | Surgical Discharge Summary ---
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 Patient/Self Services at Home: None What is Your Primary Language? Korean Review of Systems: see h&p Hospital Course Course Attending Physician: PRAKASH LENNON,JOHN Humphries Primary Care Physician: MARY HURTADO MD, I. Hospital Course: Electively scheduled left total hip arthroplasty on 08/28/16 by for primary osteoarthritis of the left hip, which went routinely. Eliquis started post-operatively for anticoagulation. Evaluated and treated by PT, who is recommending short term rehab disposition. Pain control transitioned from iv to oral medication. Dressing changed on post-op day#2, and daily thereafter. She had a recent history of a UTI, for which she was treated with antibiotics pre- operatively. Her urine culture from the OR grew 40,000 colonies of gram negative rods, found to be E.Coli. Prophylactic OR antibiotics were appropriate coverage. She was also found to be anemic postoperatively, with H/H of 09/08. This was unchanged throughout her postop course and she remained asymtomatic, so was therefore not transfused. On the day of discharge, she is tolerating her diet, voiding well, ambulating appropriately with PT, and pain level is well controlled. Complications: None Allergies: Coded Allergies: cyclobenzaprine (From FLEXERIL) (Intermediate, "REALLY BAD SHAKES AND ANXIETY" 08/10/16) Penicillins (Mild, RASH 05/15/15) poison felicitas extract (UNKNOWN 09/01/15) acetaminophen (From PERCOCET) (gi upset 08/16/16) oxycodone (From PERCOCET) (gi upset 08/16/16) Significant Procedures: 08/28/2016 left total hip replacement by Dr. Randall Disposition Summary Disposition Principal Diagnosis: L hip DJD/osteoarthritis Additional Diagnosis: Acute blood loss anemia Discharge Disposition: SNF Discharge Instructions General Discharge Information Code Status: Full Code Patient's Diet: regular Patient's Activity: You may ambulate as desired with rolling walker. Hip precautions when sitting. Avoid strenuous activity and heavy lifting, pushing, or pulling. No driving while using narcotics. Follow-Up Instructions/Appts: Avoid bathing, but you may shower as desired. Dry dressing change once daily. Please check INR on postoperative day #1 and then twice weekly thereafter. Please titrate Coumadin dose to keep INR 2-3. Please follow-up with Dr. Prakash MD at 2 weeks postop for staple removal. Please report any of the following symptoms to M.D.: Fever greater than 101, redness around the incision, drainage from the wound, chest pain, shortness of breath. Medications at Discharge Discharge Medications: Stop taking the following medications: Naproxen Sodium (Aleve) 220 MG TABLET TWICE DAILY Hydrocodone/Acetaminophen (Hydrocodon-Acetaminophen 5-325) 5 MG-325 MG TABLET ORAL EVERY 4-6 HOURS NEEDED as needed for PAIN Continue taking these medications: Alprazolam (Alprazolam) 0.25 MG TABLET 2 Tablet ORAL NIGHTLY as needed for ANXIETY Comments: Last Taken: 08/08/16 Time: 11 PM Ergocalciferol (Vitamin D2) (Vitamin D2) 50,000 UNIT CAPSULE 1 Capsule ORAL EVERY 2 WEEKS Comments: NOT GIVEN IN HOSPITAL Simvastatin (Simvastatin*) 5 MG TABLET 1 Tablet ORAL DAILY Comments: NOT GIVEN IN HOSPITAL ATORVASTATIN GIVEN 08/10/16 @ 4PM Verapamil HCl (Verapamil ER Pm) 300 MG CAP24H.PCT 1 Capsule ORAL DAILY Comments: Last Taken: 08/11/16 Time: 930 AM Lisinopril/Hydrochlorothiazide (Lisinopril-Hctz 20-12.5 MG Tab) 20 MG-12.5 MG TABLET 2 Tablet ORAL DAILY Qty = 60 Comments: Last Taken: 08/11/16 Time: 930 AM Levothyroxine Sodium (Levothyroxine Sodium) 112 MCG TABLET 1 Tablet ORAL DAILY Qty = 90 Comments: Last Taken: 08/11/16 Time: 6 AM Aspirin (Ecotrin*) 81 MG TABLET. 1 Tablet ORAL DAILY Comments: Last Taken: 08/11/16 Time: 930 AM Multivitamin (Multi-Day Vitamins) 1 EACH TABLET 1 Tablet ORAL DAILY Comments: Last Taken: 08/11/16 Time: 930 AM Ferrous Sulfate (Ferrous Sulfate) 325 MG (65 MG IRON) TABLET 1 Tablet ORAL DAILY Comments: Last Taken: 08/11/16 Time: 930 AM Cyanocobalamin (Vitamin B-12) (Vitamin B12) 2,500 MCG TAB.CHEW 1,000 Microgram ORAL DAILY Start taking the following new medications: Apixaban (Eliquis) 2.5 MG TABLET 2.5 Milligram ORAL TWICE DAILY Qty = 60 No Refills Docusate Sodium (Docusate Sodium) 100 MG CAPSULE 100 Milligram ORAL TWICE DAILY as needed for CONSTIPATION Qty = 20 No Refills Hydrocodone/Acetaminophen (Hydrocodon-Acetaminophen 5-325) 5 MG-325 MG TABLET 1 Tablet ORAL EVERY SIX HOURS NEEDED as needed for PAIN SCALE 1-4 Qty = 30 No Refills Hydrocodone/Acetaminophen (Hydrocodon-Acetaminophen 5-325) 5 MG-325 MG TABLET 2 Tablet ORAL EVERY SIX HOURS NEEDED as needed for PAIN SCALE 5-10 Qty = 30 No Refills Polyethylene Glycol 3350 (Miralax) 17 GRAM/DOSE POWDER 17 Gram ORAL DAILY NEEDED as needed for NO BM IN TWO DAYS Qty = 1 No Refills
--- NOTE | 2016-08-29 11:33 | Patient Discharge Instructions ---
Discharge Instructions General Discharge Information You were seen/treated for: Primary osteoarthritis left hip You had these procedures: Surgery Date: 08/28/16 Name of Procedure: Left total hip arthroplasty Watch for these problems: fever>101.3, increased pain, redness/swelling/drainage, dizziness, shortness of breath, chest pain Call Surgeon to remove: Sara No bath, but you may shower: Yes Other wound care: dry gauze dressing change daily, left hip Diet Continue normal diet: Yes Recommended Diet: Regular Activity Full Activity/No Limits: No Activity Self Limited: Yes Activity Limited to: Weight bear as tolerated Other activity limits: total hip precautions. rolling walker assistance. Acute Coronary Syndrome Inclusion Criteria At DC or during hospital stay patient has or had the following: ACS DIAGNOSIS No Discharge Core Measures Meds if any: Prescribed or Continued at Discharge Meds if any: NOT Prescribed or Continued at Discharge Congestive Heart Failure Inclusion Criteria At DC or during hospital stay patient has or had the following: CHF DIAGNOSIS No Discharge Core Measures Meds if any: Prescribed or Continued at Discharge Meds if any: NOT Prescribed or Continued at Discharge Cerebrovascular accident Inclusion Criteria At DC or during hospital stay patient has or had the following: CVA/TIA Diagnosis No Discharge Core Measures Meds if any: Prescribed or Continued at Discharge Meds if any: NOT Prescribed or Continued at Discharge Venous thromboembolism Inclusion Criteria VTE Diagnosis No VTE Type NONE VTE Confirmed by (Test) NONE Discharge Core Measures - Per Current guidelines, there needs to be overlap - treatment for the first 5 days of Warfarin therapy. - If discharged on Warfarin prior to 5 days of - overlap therapy, the patient will need to be - assessed for post discharge needs including - *Post discharge parental anticoagulation - *Warfarin and/or parental anticoagulation education - *Follow up date to check INR post discharge At least 5 days overlap therapy as Inpatient No Meds if any: Prescribed or Continued at Discharge Note: Overlap Therapy is Warfarin and Anticoagulant Meds if any: NOT Prescribed or Continued at Discharge
[2016-08-29] MEDS ORDERED: HYDROCODON-ACE1 EAC2 PO (11:43)
[2016-08-29] MEDS ORDERED: ELIQUIS2.5 M1 PO (11:43)
[2016-08-29] MEDS ORDERED: MIRALAX119 GM PO (11:43)
[2016-08-29] MEDS ORDERED: DOCUSATE SODIU100 M3 PO (11:43)
--- NOTE | 2016-08-29 12:35 | Cons- Medical ---
ANGY CURRY 08/29/16 1235: General Information and HPI Consulting Request Date of Consult: 08/29/16 Requested By: IRA LENNON,JOHN Humphries Reason for Consult: Co management of hypertension Source of Information: patient, family Exam Limitations: no limitations History of Present Illness: Patient is a 76 years old woman with past medical history significant for hypothyroidism status post thyroidectomy, hypertension, hyperlipidemia, osteoarthritis, history of anxiety, depression and skin cancer status post local excision of neoplastic skin lesion, status post right total hip arthroplasty for osteoarthritis of right hip on 10/12/2014 admitted to [facility] for left total hip arthroplasty due to severe osteoarthritis. This is postop day 1. Patient tolerated the procedure well , appetite has been resumed . Pain at the surgical site is well controlled with IV narcotics. Patient denies any chest discomfort or breathing) palpitations. Patient was recently admitted to [facility] in July due to sepsis of urological origin treated with IV ceftriaxone. Denies any dysuria or hematuria now. She remained afebrile, other vitals are stable. Denies any nausea vomiting abdominal discomfort. Patient has been getting out of the bed with physical therapist. Allergies/Medications Allergies: Coded Allergies: cyclobenzaprine (From FLEXERIL) (Intermediate, "REALLY BAD SHAKES AND ANXIETY" 08/10/16) Penicillins (Mild, RASH 05/15/15) poison felicitas extract (UNKNOWN 09/01/15) acetaminophen (From PERCOCET) (gi upset 08/16/16) oxycodone (From PERCOCET) (gi upset 08/16/16) Home Med List: Alprazolam 0.25 MG TABLET 2 TAB PO NIGHTLY PRN ANXIETY (Reported) Apixaban (Eliquis) 2.5 MG TABLET 2.5 MG PO BID anticoagulation Aspirin (Ecotrin*) 81 MG TABLET.DR 1 TAB PO DAILY HEART/BLOOD (Reported) Cyanocobalamin (Vitamin B-12) (Vitamin B12) 2,500 MCG TAB.CHEW 1,000 MCG PO DAILY PROPHO (Reported) Docusate Sodium 100 MG CAPSULE 100 MG PO BID PRN CONSTIPATION Ergocalciferol (Vitamin D2) (Vitamin D2) 50,000 UNIT CAPSULE 1 CAP PO Q2W SUPPLEMENT (Reported) Ferrous Sulfate 325 MG (65 MG IRON) TABLET 1 TAB PO DAILY IRON SUPPLEMENT ( Reported) Hydrocodone/Acetaminophen (Hydrocodon-Acetaminophen 5-325) 5 MG-325 MG TABLET 1-2 TAB PO Q4-6 PRN PRN PAIN (Reported) Hydrocodone/Acetaminophen (Hydrocodon-Acetaminophen 5-325) 5 MG-325 MG TABLET 1 TAB PO Q6P PRN PAIN SCALE 1-4 Hydrocodone/Acetaminophen (Hydrocodon-Acetaminophen 5-325) 5 MG-325 MG TABLET 2 TAB PO Q6P PRN PAIN SCALE 5-10 Levothyroxine Sodium 112 MCG TABLET 1 TAB PO DAILY THYROID (Reported) Lisinopril/Hydrochlorothiazide (Lisinopril-Hctz 20-12.5 MG Tab) 20 MG-12.5 MG TABLET 2 TAB PO DAILY BP (Reported) Multivitamin (Multi-Day Vitamins) 1 EACH TABLET 1 TAB PO DAILY SUPPLEMENT ( Reported) Naproxen Sodium (Aleve) 220 MG TABLET PAIN (Reported) Polyethylene Glycol 3350 (Miralax) 17 GRAM/DOSE POWDER 17 GM PO DAILY NEEDED PRN NO BM IN TWO DAYS Simvastatin (Simvastatin*) 5 MG TABLET 1 TAB PO DAILY CHOLESTEROL (Reported) Verapamil HCl (Verapamil ER Pm) 300 MG CAP24H.PCT 1 CAP PO DAILY BP (Reported ) Review of Systems Review of Systems Constitutional: Denies: chills, diaphoresis, fever, malaise. EENTM: Denies: double vision. Cardiovascular: Denies: chest pain, orthopena, palpitations. Respiratory: Denies: cough, hemoptysis, orthopnea. GI: Denies: abdominal pain, bloating, constipation. Genitourinary: Denies: discharge, dysuria, frequency. Musculoskeletal: Denies: back pain. 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 Ambulation: independent IADLs Independent: housework, telephone. Exam & Diagnostic Data Last 24 Hrs of Vital Signs/I&O Vital Signs Date Time Temp Pulse Resp B/P B/P Pulse O2 O2 Flow FiO2 Mean Ox Delivery Rate 08/29 1343 Room Air 08/29 0903 120/72 08/29 0600 100.1 78 20 148/76 94 Room Air 08/29 0156 99.8 72 20 144/80 94 Room Air 08/28 2203 99.5 87 20 126/60 95 Room Air 08/28 1911 98.4 84 20 110/66 95 08/28 1502 98.2 80 18 118/60 96 Room Air Intake & Output 08/29 1600 08/29 0800 08/29 0000 Intake Total 800 650 Output Total 300 400 Balance 500 250 Intake, IV 600 300 Intake, Oral 200 350 Output, Urine 300 400 Physical Exam General Appearance: well developed/nourished, no apparent distress Head: atraumatic, normal appearance Respiratory: normal breath sounds, chest non-tender Cardiovascular: regular rate/rhythm, edema, gallop Last 24 Hrs of Labs/Christopher: Laboratory Tests 08/29/16 0655: Anion Gap 6, Estimated GFR > 60, BUN/Creatinine Ratio 17.1, CBC w Diff NO MAN DIFF REQ, RBC 3.76 L, MCV 64.7 L, MCH 20.3 L, RDW 16.5 H, MPV 9.8, Gran % 78.4 H, Lymphocytes % 12.4 L, Monocytes % 6.0, Eosinophils % 3.0, Basophils % 0.2, Absolute Granulocytes 5.3, Absolute Lymphocytes 0.8 L, Absolute Monocytes 0.4, Absolute Eosinophils 0.2, Absolute Basophils 0, PUBS MCHC 31.4 L Assessment/Plan Assessment/Plan Patient is a 76 years old woman with past medical history significant for hypothyroidism status post thyroidectomy, hypertension, hyperlipidemia, osteoarthritis, history of anxiety, depression and skin cancer status post local excision of neoplastic skin lesion, status post right total hip arthroplasty for osteoarthritis of right hip on 10/12/2014 admitted to [facility] for left total hip arthroplasty due to severe osteoarthritis. This is postop day 1. Patient tolerated the procedure well , appetite has been resumed . Pain at the surgical site is well controlled with IV narcotics. We were consulted for medical management of blood pressure Assessment Problem list Anemia sec to blood loss postoperatively Positive Urine culture with low grade postoperative fever History of hypertension and lipidemia History of hypothyroidism Left total hip arthroplasty Plan Anemia * sec to blood loss postoperatively * Moniter H/H , watch for active signs of bleed * Keep h/h above 7 Positive Urine culture with low grade postoperative fever * low grade fever postoperatively. * urine culture positive for gram neg rods, as pt is currently asymptomatic will hold off any antibiotics for now. History of hypertension and lipidemia * Vitals are currently stable * Continue home medications including hydrochlorothiazide, lisinopril, verapamil * Continue atorvastatin. History of hypothyroidism * Continue home dose of Synthroid. Left total hip arthroplasty(post op day 1) * Continue anticoagulation as per surgery * Continue IV narcotics for severe pain control * Bowel regimen * Physical therapy Consult Acknowledgment - Thank you for your consult request. GARFIELD LENNON,[facility] 08/29/16 1447: Assessment/Plan Consult Acknowledgment - Thank you for your consult request. Attending MD Review Statement Attending Statement Attending MD Statement: examined this patient, discuss w/resident/PA/OSTOMY RN, agreed w/resident/PA/OSTOMY RN, reviewed EMR data (avail), discussed with nursing, amended to note Attending Assessment/Plan: Patient seen and examined have reviewed and agree with history and physical consult dictated by the resident above. Patient is a very pleasant 76-year-old female with history of hypertension recently treated for sepsis secondary infection. Admitted for elective right total hip replacement. She underwent procedure yesterday with no significant complications reported she currently is afebrile and hemodynamically stable. She denies any urinary complaints at present. Recommendations: - I agree with recommendations to continue her oral antihypertensive regimen as well as other home medications such as Synthroid and atorvastatin. - She is noted to have anemia which is likely secondary to expected blood loss. She is asymptomatic at present. It is reasonable to hold all blood transfusion for now and transfuse only if her hemoglobin trends below 7 or if she becomes symptomatic. - She has a low-grade fever, noted postoperatively. She has no current signs of infection at present. I will hold off antibiotic therapy for now. Urine culture is growing about 40,000 colony-forming units of gram-negative rods. However given her asymptomatic status I would hold off treating this with antibiotics for now. - Thank you for this medical consultation.
[2016-08-29 14:12] VITALS: BP 124/60
[2016-08-29 21:53] VITALS: BP 110/60
[2016-08-30 06:51] VITALS: BP 120/60
--- NOTE | 2016-08-30 07:13 | PN- Medicine Consult ---
Assessment/Plan Assessment/Plan Assessment: Patient is a 76 years old woman with past medical history significant for hypothyroidism status post thyroidectomy, hypertension, hyperlipidemia, osteoarthritis, history of anxiety, depression and skin cancer status post local excision of neoplastic skin lesion, status post right total hip arthroplasty for osteoarthritis of right hip on 10/12/2014 admitted to for left total hip arthroplasty due to severe osteoarthritis. This is postop day 2. Patient tolerated the procedure well , appetite has been resumed . Pain at the surgical site is well controlled with IV narcotics. We were consulted for medical management of blood pressure Plan: Problem list Anemia sec to blood loss postoperatively Positive Urine culture with low grade postoperative fever History of hypertension and lipidemia History of hypothyroidism Left total hip arthroplasty Plan Anemia * sec to blood loss postoperatively * Moniter H/H , watch for active signs of bleed * Keep h/h above 7 Positive Urine culture with low grade postoperative fever * low grade fever postoperatively. * urine culture positive for gram neg rods, as pt is currently asymptomatic, without any dysuria hematuria or urinary frequency ,will hold off any antibiotics for now. History of hypertension and lipidemia * Vitals are currently stable * Continue home medications including hydrochlorothiazide, lisinopril, verapamil * Continue atorvastatin. History of hypothyroidism * Continue home dose of Synthroid. Left total hip arthroplasty(post op day 2) * Continue anticoagulation as per surgery * Continue IV narcotics for severe pain control * Bowel regimen * As per physical therapy recommendations patient will be discharged home with home health services. Problem List: 1. Hypertension 2. Hypothyroidism Subjective Subjective: Patient seen and examined the morning, slept well ,vital stable. Pain is well controlled at the surgical site, getting out of bed with assistance . Denies any chest discomfort or breathing or any palpitations. Review of Systems Constitutional: Denies: chills, diaphoresis, fever, malaise. EENTM: Denies: blurred vision, double vision, visual changes. Cardiovascular: Denies: chest pain, edema, orthopena. Respiratory: Denies: cough, hemoptysis, orthopnea. Gastrointestinal: Denies: abdominal pain, bloating, constipation. Genitourinary: Denies: discharge, dysuria, frequency. Musculoskeletal: Denies: back pain, gout, joint pain. Skin: Denies: change in skin color, change in hair/nails. Neurological/Psychological: Denies: anxiety, ataxia, cognitive dysfunction. Objective Last 24 Hrs of Vital Signs/I&O Vital Signs Date Time Temp Pulse Resp B/P B/P Pulse O2 O2 Flow FiO2 Mean Ox Delivery Rate 08/30 0651 98.3 49 20 120/60 92 Room Air 08/29 2153 99.9 83 20 110/60 94 Room Air 08/29 1417 Room Air 08/29 1412 99.4 84 20 124/60 92 08/29 1343 Room Air 08/29 0903 120/72 Intake & Output 08/30 0800 08/30 0000 08/29 1600 Intake Total 286 162 4115 Output Total 300 500 640 Balance -60 -140 1160 Intake, Oral 751 138 0647 Output, Urine 300 500 640 Physical Exam General Appearance: well developed/nourished, no apparent distress Head: atraumatic, normal appearance Ears, Nose, Throat: normal pharynx, normal ENT inspection Neck: normal inspection, supple Cardiovascular: regular rate/rhythm, edema Respiratory: normal breath sounds, chest non-tender Abdomen: normal bowel sounds, soft, non-tender Extremities: normal inspection, normal capillary refill Current Medications: Current Medications Sig/Hugo Start time Last Medication Dose Route Stop Time Status Admin Acetaminophen/ 1 TAB Q6P PRN 08/28 1145 AC 08/30 Hydrocodone Bitart PO 0003 Acetaminophen/ 2 TAB Q6P PRN 08/28 1145 AC Hydrocodone Bitart PO Apixaban 2.5 MG BID 08/29 1000 AC 08/30 PO 0755 Atorvastatin Calcium 5 MG 1700 08/28 2015 AC 08/29 PO 1551 Cyanocobalamin 1,000 MCG DAILY 08/28 1000 AC 08/30 PO 0756 Dextrose/Lactated 1,000 ML Q13H 08/28 1145 DC 08/28 Ringer's IV 2149 Docusate Sodium 100 MG BID 08/28 2200 AC 08/30 PO 0756 Ferrous Sulfate 325 MG DAILY 08/28 1000 AC 08/30 PO 0756 Hydrochlorothiazide 25 MG DAILY 08/29 1000 AC 08/30 PO 0757 Ketorolac 30 MG .STK-MED ONE 08/29 1152 DC Tromethamine IM 08/29 1153 Levothyroxine Sodium 0.112 MG 0600 08/31 0600 AC PO Levothyroxine Sodium 0.112 MG DAILY 08/28 1000 DC 08/29 PO 0540 Lisinopril 40 MG DAILY 08/29 1000 AC 08/30 PO 0756 Morphine Sulfate 2 MG Q3P PRN 08/28 1145 AC 08/29 IV 0540 Morphine Sulfate 4 MG Q3P PRN 08/28 1145 AC 08/29 IV 1200 Ondansetron HCl 4 MG Q6P PRN 08/28 1145 AC IV Patient Medication 1 ED .STK-MED ONE 08/29 1403 HI Teaching ED 08/29 1404 Polyethylene Glycol 17 GM DAILY NEEDED PRN 08/28 1145 AC 08/30 PO 0806 Ramelteon 8 MG AT BEDTIME NEED.. 08/28 1145 AC PO Senna/Docusate Sodium 2 TAB AT BEDTIME NEED.. 08/28 1145 AC 08/28 PO 1911 Verapamil HCl 300 MG DAILY 08/28 1000 AC 08/30 PO 0758 Results Last 24 Hrs Lab/Christopher Results: Laboratory Tests 08/30/16 0656: Sodium Pending, Potassium Pending, Chloride Pending, Carbon Dioxide Pending, Anion Gap Pending, BUN Pending, Creatinine Pending, BUN/Creatinine Ratio Pending , CBC w Diff Pending, WBC Pending, RBC Pending, Hgb Pending, Hct Pending, MCV Pending, MCH Pending, RDW Pending, Plt Count Pending, MPV Pending, PUBS MCHC Pending 08/29/162109: Urine Color YEL, Urine Clarity HAZY H, Urine pH 6.0, Ur Specific [place] 1.020, Urine Protein NEG, Urine Ketones NEG, Urine Nitrite NEG, Urine Bilirubin NEG, Urine Urobilinogen 0.2, Ur Leukocyte Esterase SMALL H, Ur Microscopic SEDIMENT EXAMINED, Urine RBC 1-3, Urine WBC 5-10 H, Ur Epithelial Cells RARE, Urine Bacteria FEW H, Urine Hemoglobin TRACE-INTACT, Urine Glucose NEG Microbiology 08/29 2109 URINE ROUT: Urine Culture - RECD
[2016-08-30 08:15] LABS: ABSOLUTE BASOPHIL COUNT 0 /CUMM (0.0-0.2); ABSOLUTE EOSINOPHIL COUNT 0.4 /CUMM (0.0-0.7); ABSOLUTE GRANULOCYTE CT 5.2 /CUMM (1.4-6.5); ABSOLUTE MONOCYTE COUNT 0.6 /CUMM (0.10-0.60); BASOPHIL % 0.1 % (0.0-2.0); EOSINOPHIL % 5.9 % (0-5); GRANULOCYTE % 71.8 % (42.2-75.2); HEMATOCRIT 23.7 % (37-47); MEAN CORPUSCULAR HGB 20.3 PG (27.0-31.0); MEAN CORPUSCULAR HGB CONC 31.5 G/DL (33.0-37.0); MEAN CORPUSCULAR VOLUME 64.3 FL (81.0-99.0); MEAN PLATELET VOLUME 9.6 FL (7.4-10.4); PLATELET COUNT 165 /CUMM (130-400); RBC DISTRIBUTION WIDTH 16.3 % (11.5-14.5); RED BLOOD CELL CT 3.68 /CUMM (4.20-5.40); WHITE BLOOD CELL COUNT 7.2 /CUMM (4.8-10.8)
--- NOTE | 2016-08-30 10:17 | PN- Orthopedic ---
Subjective Subjective: Patient was feeling a little bit "woosey" yesterday when standing but this has resolved today Pain is slowly improving however patient still uncomfortable especially with physical therapy. She does not feel comfortable being discharged home today, she is hopeful to go to rehabilitation tomorrow Objective Vital Signs and I&Os Vital Signs Date Time Temp Pulse Resp B/P B/P Pulse O2 O2 Flow FiO2 Mean Ox Delivery Rate 08/30 0756 118/68 08/30 0754 84 08/30 0651 98.3 49 20 120/60 92 Room Air 08/29 2153 99.9 83 20 110/60 94 Room Air 08/29 1417 Room Air 08/29 1412 99.4 84 20 124/60 92 08/29 1343 Room Air Intake & Output 08/30 0808/30 0000 08/29 1600 08/29 0000 Intake Total 460 989 6585 800 650 Output Total 300 500 640 300 400 Balance -60 -140 1160 500 250 Intake, IV 600 300 Intake, Oral 359 704 9466 200 350 Output, Urine 300 500 640 300 400 Physical Exam: Well-developed well-nourished no apparent distress. HEENT: Atraumatic, extraocular motion intact Neck: Supple, no lymphadenopathy Respiratory: No respiratory distress Extremities: No edema Left lower extremity hip dressing in place, Dressing clean dry and intact with minimal bloody staining Incision without erythema Mild thigh edema No signs of infection. No shortening or rotation Hip range of motion is limited and without unexpected pain Neurovascularly intact distally Bilateral calves are supple, nontender. Neuro: Alert and oriented x3 Psych: Mood affect normal, normal memory normal judgment. Skin: Warm and dry, no rash on exposed skin Results Last 48 Hours of Labs: Laboratory Tests 08/30 08/29 0656 2110 Chemistry Sodium (137 - 145 mmol/L) 133 L Potassium (3.5 - 5.1 mmol/L) 3.7 Chloride (98 - 107 mmol/L) 97 L Carbon Dioxide (22 - 30 mmol/L) 31 H Anion Gap (5 - 16) 5 BUN (7 - 17 mg/dL) 10 Creatinine (0.5 - 1.0 mg/dL) 0.7 Estimated GFR (>60 ml/min) > 60 BUN/Creatinine Ratio (7 - 25 %) 14.3 Hematology CBC w Diff NO MAN DIFF REQ WBC (4.8 - 10.8 /CUMM) 7.2 RBC (4.20 - 5.40 /CUMM) 3.68 L Hgb (12.0 - 16.0 G/DL) 7.5 L Hct (37 - 47 %) 23.7 L MCV (81.0 - 99.0 FL) 64.3 L MCH (27.0 - 31.0 PG) 20.3 L RDW (11.5 - 14.5 %) 16.3 H Plt Count (130 - 400 /CUMM) 165 MPV (7.4 - 10.4 FL) 9.6 Gran % (42.2 - 75.2 %) 71.8 Lymphocytes % (20.5 - 51.1 %) 13.7 L Monocytes % (1.7 - 9.3 %) 8.5 Eosinophils % (0 - 5 %) 5.9 H Basophils % (0.0 - 2.0 %) 0.1 Absolute Granulocytes (1.4 - 6.5 /CUMM) 5.2 Absolute Lymphocytes (1.2 - 3.4 /CUMM) 1.0 L Absolute Monocytes (0.10 - 0.60 /CUMM) 0.6 Absolute Eosinophils (0.0 - 0.7 /CUMM) 0.4 Absolute Basophils (0.0 - 0.2 /CUMM) 0 PUBS MCHC (33.0 - 37.0 G/DL) 31.5 L Urines Urine Color (YEL,AMB,STR) YEL Urine Clarity (CLEAR) HAZY H Urine pH (5.0 - 8.0) 6.0 Ur Specific [place] (1.001 - 1.035) 1.020 Urine Protein (NEG,<30 MG/DL) NEG Urine Ketones (NEG) NEG Urine Nitrite (NEG) NEG Urine Bilirubin (NEG) NEG Urine Urobilinogen (0.1 - 1.0 EU/dl) 0.2 Ur Leukocyte Esterase (NEG) SMALL H Ur Microscopic SEDIMENT EXAMINED Urine RBC (0 - 5 /HPF) 1-3 Urine WBC (0 - 2 /HPF) 5-10 H Ur Epithelial Cells (NONE,FEW) RARE Urine Bacteria (NEG/NONE) FEW H Urine Hemoglobin (NEG) TRACE-INTACT Urine Glucose (N MG/DL) NEG 08/29 0655 Chemistry Sodium (137 - 145 mmol/L) 134 L Potassium (3.5 - 5.1 mmol/L) 4.2 Chloride (98 - 107 mmol/L) 98 Carbon Dioxide (22 - 30 mmol/L) 30 Anion Gap (5 - 16) 6 BUN (7 - 17 mg/dL) 12 Creatinine (0.5 - 1.0 mg/dL) 0.7 Estimated GFR (>60 ml/min) > 60 BUN/Creatinine Ratio (7 - 25 %) 17.1 Hematology CBC w Diff NO MAN DIFF REQ WBC (4.8 - 10.8 /CUMM) 6.7 RBC (4.20 - 5.40 /CUMM) 3.76 L Hgb (12.0 - 16.0 G/DL) 7.6 L Hct (37 - 47 %) 24.3 L MCV (81.0 - 99.0 FL) 64.7 L MCH (27.0 - 31.0 PG) 20.3 L RDW (11.5 - 14.5 %) 16.5 H Plt Count (130 - 400 /CUMM) 163 MPV (7.4 - 10.4 FL) 9.8 Gran % (42.2 - 75.2 %) 78.4 H Lymphocytes % (20.5 - 51.1 %) 12.4 L Monocytes % (1.7 - 9.3 %) 6.0 Eosinophils % (0 - 5 %) 3.0 Basophils % (0.0 - 2.0 %) 0.2 Absolute Granulocytes (1.4 - 6.5 /CUMM) 5.3 Absolute Lymphocytes (1.2 - 3.4 /CUMM) 0.8 L Absolute Monocytes (0.10 - 0.60 /CUMM) 0.4 Absolute Eosinophils (0.0 - 0.7 /CUMM) 0.2 Absolute Basophils (0.0 - 0.2 /CUMM) 0 PUBS MCHC (33.0 - 37.0 G/DL) 31.4 L Assessment/Plan Assessment/Plan Postoperative day #2 status post left total hip arthroplasty Acute blood loss anemia, no significant change from yesterday, we'll continue to monitor Pain medication as needed. eliquis for DVT prophylaxis Continue physical therapy. Total hip precautions Weightbearing as tolerated Following labs tomorrow Plan for DC tomorrow, [facility] Core Measures/Miscellaneous Venous Thromboembolism VTE Risk Factors: Age > 40, Obesity, Surgery VTE Contraindications: No Contraindications VTE Diagnosis: No Beta Mojgan Is Beta Mojgan a Home Med? No Antibiotics Is Patient on Antibiotics? Yes If Yes: prophylaxis
[2016-08-30 14:25] VITALS: BP 100/60
[2016-08-30 22:42] VITALS: BP 144/80
[2016-08-31 06:00] VITALS: BP 128/76
[2016-08-31 09:17] LABS: ABSOLUTE BASOPHIL COUNT 0 /CUMM (0.0-0.2); ABSOLUTE EOSINOPHIL COUNT 0.5 /CUMM (0.0-0.7); GRANULOCYTE % 69.8 % (42.2-75.2)
[2016-08-31 09:32] LABS: ABSOLUTE GRANULOCYTE CT 5.3 /CUMM (1.4-6.5); ABSOLUTE LYMPH COUNT 1.1 /CUMM (1.2-3.4); ABSOLUTE MONOCYTE COUNT 0.6 /CUMM (0.10-0.60); BASOPHIL % 0.3 % (0.0-2.0); EOSINOPHIL % 6.8 % (0-5); HEMATOCRIT 23.4 % (37-47); MEAN CORPUSCULAR HGB 20.1 PG (27.0-31.0); MEAN CORPUSCULAR HGB CONC 31.5 G/DL (33.0-37.0); MEAN PLATELET VOLUME 9.7 FL (7.4-10.4); PLATELET COUNT 171 /CUMM (130-400); RBC DISTRIBUTION WIDTH 16.4 % (11.5-14.5); RED BLOOD CELL CT 3.66 /CUMM (4.20-5.40); WHITE BLOOD CELL COUNT 7.6 /CUMM (4.8-10.8)
--- NOTE | 2016-08-31 10:30 | PN- Orthopedic ---
Subjective Subjective: Postoperative day #3 status post left total hip replacement Patient has no major complaints this morning. Her pain levels are well controlled. She admits to some minor discomfort upon standing, but is progressing well with physical therapy. She is otherwise tolerating a diet, voiding well, and has moved her bowels. She has been anemic postoperatively, but asymptomatic. She denies headache, dizziness, chest pain, shortness of breath, nausea, vomiting. Objective Vital Signs and I&Os Vital Signs Date Time Temp Pulse Resp B/P B/P Pulse O2 O2 Flow FiO2 Mean Ox Delivery Rate 08/31 0600 98.3 75 20 128/76 94 Room Air 08/30 2242 98.4 77 20 144/80 93 Room Air 08/30 1621 99.5 08/30 1522 100.5 08/30 1425 100.5 88 20 100/60 96 08/30 1357 Room Air 08/30 1353 Room Air Intake & Output 08/31 1600 08/31 0800 08/31 0000 08/30 1600 08/30 0800 08/30 0000 Intake Total 800 1600 240 360 Output Total 550 600 750 300 500 Balance -550 200 850 -60 -140 Intake, Oral 800 1600 240 360 Number 1 2 Bowel Movements Output, Urine 550 600 750 300 500 Physical Exam: Gen.: Patient is awake and alert. Sitting in the chair. No acute distress. Cardiac: Regular Pulmonary: Lungs are clear to stage bilaterally. Extremities: The left hip incision is clean, dry, and intact with sage. There is no erythema or drainage. Mild devin-incisional swelling, but the thigh is soft. Patient is able to bend her knee. Strength of dorsiflexion and plantarflexion 5 out of 5. No calf tenderness bilaterally. Results Last 48 Hours of Labs: Laboratory Tests 08/31 08/30 0629 1710 Chemistry Sodium (137 - 145 mmol/L) 136 L Potassium (3.5 - 5.1 mmol/L) 3.8 Chloride (98 - 107 mmol/L) 95 L Carbon Dioxide (22 - 30 mmol/L) 34 H Anion Gap (5 - 16) 7 BUN (7 - 17 mg/dL) 11 Creatinine (0.5 - 1.0 mg/dL) 0.7 Estimated GFR (>60 ml/min) > 60 BUN/Creatinine Ratio (7 - 25 %) 15.7 Hematology CBC w Diff NO MAN DIFF REQ WBC (4.8 - 10.8 /CUMM) 7.6 RBC (4.20 - 5.40 /CUMM) 3.66 L Hgb (12.0 - 16.0 G/DL) 7.4 *L Hct (37 - 47 %) 23.4 L MCV (81.0 - 99.0 FL) 64.0 L MCH (27.0 - 31.0 PG) 20.1 L RDW (11.5 - 14.5 %) 16.4 H Plt Count (130 - 400 /CUMM) 171 MPV (7.4 - 10.4 FL) 9.7 Gran % (42.2 - 75.2 %) 69.8 Lymphocytes % (20.5 - 51.1 %) 15.2 L Monocytes % (1.7 - 9.3 %) 7.9 Eosinophils % (0 - 5 %) 6.8 H Basophils % (0.0 - 2.0 %) 0.3 Absolute Granulocytes (1.4 - 6.5 /CUMM) 5.3 Absolute Lymphocytes (1.2 - 3.4 /CUMM) 1.1 L Absolute Monocytes (0.10 - 0.60 /CUMM) 0.6 Absolute Eosinophils (0.0 - 0.7 /CUMM) 0.5 Absolute Basophils (0.0 - 0.2 /CUMM) 0 PUBS MCHC (33.0 - 37.0 G/DL) 31.5 L Urines Urine Color (YEL,AMB,STR) YEL Urine Clarity (CLEAR) CLEAR Urine pH (5.0 - 8.0) 6.0 Ur Specific [place] (1.001 - 1.035) <= 1.005 Urine Protein (NEG,<30 MG/DL) NEG Urine Ketones (NEG) NEG Urine Nitrite (NEG) NEG Urine Bilirubin (NEG) NEG Urine Urobilinogen (0.1 - 1.0 EU/dl) 0.2 Ur Leukocyte Esterase (NEG) SMALL H Ur Microscopic SEDIMENT EXAMINED Urine RBC (0 - 5 /HPF) 5-10 H Urine WBC (0 - 2 /HPF) 10-15 H Ur Epithelial Cells (NONE,FEW) MANY H Urine Hemoglobin (NEG) TRACE-LYSED Urine Glucose (N MG/DL) NEG 08/30 08/29 0656 2110 Chemistry Sodium (137 - 145 mmol/L) 133 L Potassium (3.5 - 5.1 mmol/L) 3.7 Chloride (98 - 107 mmol/L) 97 L Carbon Dioxide (22 - 30 mmol/L) 31 H Anion Gap (5 - 16) 5 BUN (7 - 17 mg/dL) 10 Creatinine (0.5 - 1.0 mg/dL) 0.7 Estimated GFR (>60 ml/min) > 60 BUN/Creatinine Ratio (7 - 25 %) 14.3 Hematology CBC w Diff NO MAN DIFF REQ WBC (4.8 - 10.8 /CUMM) 7.2 RBC (4.20 - 5.40 /CUMM) 3.68 L Hgb (12.0 - 16.0 G/DL) 7.5 L Hct (37 - 47 %) 23.7 L MCV (81.0 - 99.0 FL) 64.3 L MCH (27.0 - 31.0 PG) 20.3 L RDW (11.5 - 14.5 %) 16.3 H Plt Count (130 - 400 /CUMM) 165 MPV (7.4 - 10.4 FL) 9.6 Gran % (42.2 - 75.2 %) 71.8 Lymphocytes % (20.5 - 51.1 %) 13.7 L Monocytes % (1.7 - 9.3 %) 8.5 Eosinophils % (0 - 5 %) 5.9 H Basophils % (0.0 - 2.0 %) 0.1 Absolute Granulocytes (1.4 - 6.5 /CUMM) 5.2 Absolute Lymphocytes (1.2 - 3.4 /CUMM) 1.0 L Absolute Monocytes (0.10 - 0.60 /CUMM) 0.6 Absolute Eosinophils (0.0 - 0.7 /CUMM) 0.4 Absolute Basophils (0.0 - 0.2 /CUMM) 0 PUBS MCHC (33.0 - 37.0 G/DL) 31.5 L Urines Urine Color (YEL,AMB,STR) YEL Urine Clarity (CLEAR) HAZY H Urine pH (5.0 - 8.0) 6.0 Ur Specific [place] (1.001 - 1.035) 1.020 Urine Protein (NEG,<30 MG/DL) NEG Urine Ketones (NEG) NEG Urine Nitrite (NEG) NEG Urine Bilirubin (NEG) NEG Urine Urobilinogen (0.1 - 1.0 EU/dl) 0.2 Ur Leukocyte Esterase (NEG) SMALL H Ur Microscopic SEDIMENT EXAMINED Urine RBC (0 - 5 /HPF) 1-3 Urine WBC (0 - 2 /HPF) 5-10 H Ur Epithelial Cells (NONE,FEW) RARE Urine Bacteria (NEG/NONE) FEW H Urine Hemoglobin (NEG) TRACE-INTACT Urine Glucose (N MG/DL) NEG Assessment/Plan Assessment/Plan Patient is a 76-year-old female with a history of hypothyroidism, hyperlipidemia , hypertension, anxiety/depression, history of a left total knee replacement and history of a right total hip replacement, who is now postoperative day #3 status post left total hip replacement. She had a recent episode of urosepsis earlier this summer and urine cultures during this admission were positive for Escherichia coli. Plan: -Patient experienced acute postop blood loss anemia. She has a history of baseline anemia due beta thalassemia trait. She has been asymptomatic and will not require transfusion. -Continue pain control with Percocet as needed. -Continue PT for mobilization. Weight-bear as tolerated. -Continue dry dressing changes daily. -Continue Eliquis twice a day for DVT prophylaxis. -Plan for discharge to short-term rehabilitation today. Follow-up with Dr. Randall in 2 weeks for staple removal. Core Measures/Miscellaneous Venous Thromboembolism VTE Risk Factors: Age > 40, Obesity, Surgery VTE Contraindications: No Contraindications VTE Diagnosis: No Beta Mojgan Is Beta Mojgan a Home Med? No Antibiotics Is Patient on Antibiotics? Yes If Yes: prophylaxis
[2016-08-31 13:31] VITALS: BP 128/76
== END 2016-08-31 14:45 | DRG 470 ==
LOC: SDA 01:49 → ENRESERV 10:40 → ENTRNSPT 10:54 → EDTRNSPTSTS 11:26 → 2NA 11:36 → CMPTRNSPT 11:44 → 2NA 15:36
PROVIDERS: Physician Assistant; Physician Assistant Surgical; ADMIT Orthopaedic Surgery Foot and Ankle Surgery
PROC: 0SRB0JZ Replacement of Left Hip Joint with Synthetic Substitute, Open Approach (ICD-10-PCS; principal; 2016-08-28)
DX: M16.12 Unilateral primary osteoarthritis, left hip (principal); R50.82 Postprocedural fever; I10 Essential (primary) hypertension; D62 Acute posthemorrhagic anemia; E78.5 Hyperlipidemia, unspecified; E03.9 Hypothyroidism, unspecified; F41.9 Anxiety disorder, unspecified; Z88.0 Allergy status to penicillin
CPT/HCPCS: 2NASP; 36415; 73501; 81001; 82436; 87086; 97110-GO; 97112-GO; 97116-GO; 97161-GP; 97530-GO; J0131; J1885; J3370; J7040